=== PATIENT | male | born 1945 | race Caucasian/White ===

== ENCOUNTER 2017-04-13 23:22 | Inpatient (IN) | payer OTHER, MEDICARE ==
[2017-04-13] MEDS ORDERED: DILTIAZEM HCL INJ 25 MG/5 ML VIAL IV ONE (23:38)
[2017-04-13] MEDS ORDERED: DILTIAZEM HCL INJ 25 MG/5 ML VIAL ONE (23:41)
[2017-04-13 23:52] LABS: ALANINE AMINOTRANSFERASE 45 U/L (21-72); ALBUMIN 4.1 g/dL (3.5-5.0); ALCOHOL 12 mg/dL (NONE DETECTED); ALKALINE PHOSPHATASE 103 U/L (38-126); ASPARTATE AMINO TRANSFERASE 80 U/L (17-59); BILIRUBIN,DIRECT 0.4 mg/dL (0.0-0.4); BILIRUBIN,TOTAL 0.7 mg/dL (0.2-1.3); BLOOD UREA NITROGEN 11 mg/dL (7-20); CALCIUM 8.5 mg/dL (8.4-10.2); CARBON DIOXIDE 12 mmol/L (22-30); CHLORIDE 105 mmol/L (98-107); CREATININE RESULT 1.07 mg/dL (0.52-1.25); GLUCOSE 285 mg/dL (75-110); HEMATOCRIT 49.7 % (37.9-51.0); HEMOGLOBIN 15.6 g/dL (13.5-17.0); HGB HCT DIFFERENCE -2.9; MAGNESIUM 1.8 mg/dL (1.6-2.3); MEAN CORPUSCULAR HGB CONC 31.5 g/dL (32.0-36.0); MEAN CORPUSCULAR VOLUME 99 fl (80-97); RED BLOOD COUNT 5.04 10^6/uL (4.35-5.55); RED CELL DISTRIBUTION WIDTH 16.7 % (11.5-14.0); TOTAL PROTEIN 7.1 g/dL (6.3-8.2); WHITE BLOOD COUNT 14.5 10^3/uL (4.0-10.5)
[2017-04-14 00:01] LABS: SODIUM 146.4 mmol/L (137-145)
[2017-04-14 00:03] LABS: ANION GAP 29 (5-19); POTASSIUM 3.1 mmol/L (3.6-5.0)
--- NOTE | 2017-04-14 00:12 | RADIOLOGY REPORT (SQ) ---
EXAM DESCRIPTION: CT HEAD WITHOUT COMPLETED DATE/TIME: 04/13/2017 11:57 pm REASON FOR STUDY: seizure COMPARISON: None. TECHNIQUE: Axial images acquired through the brain without intravenous contrast. Images reviewed wi th bone, brain and subdural windows. Images stored on PACS. All CT scanners at this facility use dose modulation, iterative reconstruction, and/or weight based d osing when appropriate to reduce radiation dose to as low as reasonably achievable (ALARA). [facility]: Dose Right [facility]: CareDose [facility]: Dose Right [facility]: Teradose 4D [facility]: Smart [employer] RADIATION DOSE: Up-to-date CT equipment and radiation dose reduction techniques were employed. CTDIv ol: 64.6 mGy. DLP: 1163 mGy-cm. mGy. LIMITATIONS: None. FINDINGS: The VENTRICLES: Normal size and contour. CEREBRUM: No masses. No hemorrhage. No midline shift. Moderate left posterior parieto-occipital en cephalomalacia/infarct. Mild cerebral volume loss. CEREBELLUM: No masses. No hemorrhage. No alteration of density. No evidence for acute infarction. EXTRAAXIAL SPACES: No fluid collections. No masses. ORBITS AND GLOBE: No intra- or extraconal masses. Normal contour of globe without masses. CALVARIUM: No fracture. PARANASAL SINUSES: No fluid or mucosal thickening. SOFT TISSUES: No mass or hematoma. OTHER: No other significant finding. IMPRESSION: No acute findings.Moderate left posterior parieto-occipital encephalomalacia/infarct. TECHNICAL DOCUMENTATION: JOB ID: [id number] Quality ID # [id number]: Final reports with documentation of one or more dose reduction techniques (e.g., Au tomated exposure control, adjustment of the mA and/or kV according to patient size, use of iterative reconstruction technique) 2010 [employer]- All Rights Reserved
[2017-04-14 00:14] LABS: BASOPHILS % (MANUAL) 1 % (0-2); EOSINOPHILS % (MANUAL) 0 % (0-6); LYMPHOCYTES % (MANUAL) 41 % (13-45); TOTAL CELLS COUNTED 100
[2017-04-14 00:17] LABS: ANISOCYTOSIS 1+; OVALOCYTES SLIGHT; POIKILOCYTOSIS SLIGHT
--- NOTE | 2017-04-14 00:19 | RADIOLOGY REPORT (SQ) ---
EXAM DESCRIPTION: CHEST SINGLE VIEW COMPLETED DATE/TIME: 04/14/2017 12:03 am REASON FOR STUDY: dyspnea COMPARISON: None. EXAM PARAMETERS: NUMBER OF VIEWS: One view. TECHNIQUE: Single frontal radiographic view of the chest acquired. RADIATION DOSE: NA LIMITATIONS: None. FINDINGS: LUNGS AND PLEURA: Small left basilar atelectasis or scar. Moderate lung volumes. MEDIASTINUM AND HILAR STRUCTURES: No masses. Contour normal. HEART AND VASCULAR STRUCTURES: Heart normal in size. Normal vasculature. BONES: No acute findings. HARDWARE: None in the chest. OTHER: Moderate intra colonic gas of the upper abdomen. IMPRESSION: No acute cardiopulmonary findings. TECHNICAL DOCUMENTATION: JOB ID: [id number]
[2017-04-14 00:22] LABS: THYROID STIMULATING HORMONE 1.52 uIU/mL (0.47-4.68)
--- NOTE | 2017-04-14 00:24 | RADIOLOGY REPORT (SQ) ---
EXAM DESCRIPTION: CT CERVICAL SPINE WITHOUT COMPLETED DATE/TIME: 04/14/2017 12:03 am REASON FOR STUDY: fall with injury COMPARISON: None. TECHNIQUE: Axial images acquired through the cervical spine without intravenous contrast. Images re viewed with lung, soft tissue and bone windows. Reconstructed coronal and sagittal MPR images review ed. Images stored on PACS. All CT scanners at this facility use dose modulation, iterative reconstruction, and/or weight based d osing when appropriate to reduce radiation dose to as low as reasonably achievable (ALARA). [facility]: Dose Right [facility]: CareDose [facility]: Dose Right [facility]: Teradose 4D [facility]: Smart [employer] RADIATION DOSE: Up-to-date CT equipment and radiation dose reduction techniques were employed. CTDIv ol: 21.7 mGy. DLP: 448 mGy-cm. mGy. LIMITATIONS: None. FINDINGS: ALIGNMENT: Anatomic. MINERALIZATION: Normal. VERTEBRAL BODIES: No fractures or dislocation. DISCS: Moderate C6-C7 disc bulge. Mild C5-C6 disc bulge. Small T1-T2 disc bulge. Moderate spondylo sis between the C3 and C7 levels and mild -moderate disc bulges include mild -moderate bilateral bony foraminal stenoses at those levels. FACETS, LATERAL MASSES, POSTERIOR ELEMENTS: No fractures. No dislocation. No acute findings. HARDWARE: None in the spine. VISUALIZED RIBS: No fractures. LUNG APICES AND SOFT TISSUES: No significant or acute findings. OTHER: No other significant finding. IMPRESSION: NO ACUTE FINDINGS IN THE CERVICAL SPINE. TECHNICAL DOCUMENTATION: JOB ID: [id number] Quality ID # [id number]: Final reports with documentation of one or more dose reduction techniques (e.g., Au tomated exposure control, adjustment of the mA and/or kV according to patient size, use of iterative reconstruction technique) 2010 [employer]- All Rights Reserved
[2017-04-14] MEDS ORDERED: POTASSI CL 40 MEQ/D5-1/2NS 1L 1,000 ML IV ONE (00:46)
--- NOTE | 2017-04-14 01:10 | ER Document Report ---
ED General - General Chief Complaint: Probable Seizure Stated Complaint: UNRESPONSIVE Time Seen by Provider: 04/13/17 23:31 Mode of Arrival: Medic Information source: Patient, Relative, Emergency Med Personnel - [facility] Notes: Patient is a 71 y.o. male with hx of CVA with prior R sided mild weakness, but usually ambulates without assistance, prior hx epilepsy remotely, hx alcohol abuse, presents by EMS with report of observed seizure activity by family and later EMS at 2100, pt was given Versed 2 mg intranasal followed by 2 mg IV before the seizure activity subsided. The patient was then found to have a persistent tachycardia with a rate of 170 and blood pressure of 69 systolic and attempt was made for cardioversion by EMS which was unsuccessful. The patient arrived in atrial fibrillation, but the blood pressure had recovered at the time of evaluation on arrival with blood pressure 149/83 Heart rate of 165. Past Medical History - General Information source: Patient, Relative, Emergency Med Personnel - Social History Smoking Status: Current Some Day Smoker Frequency of alcohol use: Heavy Drug Abuse: Marijuana Lives with: Family Family History: Reviewed & Not Pertinent Review of Systems - Review of Systems Notes: REVIEW OF SYSTEMS: Obtained after the patient became more alert and coherent. CONSTITUTIONAL : Denies fever, chills, or sweats. Denies recent illness. EENT: Denies eye, ear, throat, or mouth pain or symptoms. Denies nasal or sinus congestion or discharge. Denies throat, tongue, or mouth swelling or difficulty swallowing. CARDIOVASCULAR: Denies chest pain. Denies palpitations or racing or irregular heart beat. Denies ankle edema. RESPIRATORY: Denies cough, cold, or chest congestion. Denies shortness of breath, difficulty breathing, or wheezing. GASTROINTESTINAL: Denies abdominal pain or distention. Denies nausea, vomiting , or diarrhea. Denies blood in vomitus, stools, or per rectum. Denies black, tarry stools. Denies constipation. GENITOURINARY: Denies difficulty urinating, painful urination, burning, frequency, blood in urine, or discharge. MUSCULOSKELETAL: Denies back or neck pain or stiffness. Denies joint pain or swelling. SKIN: Denies rash, lesions or sores. HEMATOLOGIC : Denies easy bruising or bleeding. LYMPHATIC: Denies swollen, enlarged glands. NEUROLOGICAL: Postictal confusion that has improved. Denies passing out or loss of consciousness. Denies dizziness or lightheadedness. Denies headache. Denies problems with gait or speech. Denies sensory loss, numbness, or tingling. Patient has right sided weakness which is worse from his previous stroke. PSYCHIATRIC: Denies anxiety or stress. Denies depression, suicidal ideation, or homicidal ideation. ALL OTHER SYSTEMS REVIEWED AND NEGATIVE. Dictation was performed using [employer] voice recognition software obtained after the patient became more alert Physical Exam - Vital signs Vitals: Pulse Ox 98 04/13/17 23:33 - Notes Notes: PHYSICAL EXAMINATION: GENERAL: Patient initially was seen somewhat distressed unconscious but responsive to painful stimuli HEAD: normocephalic. Patient has old contusion right upper forehead approximately 1 week old. No bony deformity or crepitance. EYES: Pupils 2 mm on the right 4 mm on the left with minimal reactivity, extraocular movements intact, sclera anicteric, conjunctiva are normal. patient later stated that his pupils are usually not the same size chronically. ENT: Nares patent, oropharynx clear without exudates. Moist mucous membranes. NECK: Normal range of motion On later exam , supple without lymphadenopathy LUNGS: Breath sounds clear to auscultation bilaterally and equal. No wheezes rales or rhonchi. HEART: tachycardic irregular rate 165. 1/6 systolic ejection murmur best auscultated over the apex. ABDOMEN: Soft, nontender, nondistended abdomen. No guarding, no rebound. No masses appreciated. Musculoskeletal: Normal range of motion, no pitting or edema. No cyanosis. NEUROLOGICAL: And disoriented and was slow to respond initial exam patient was somnolent . Patient initially was responsive to painful stimuli but only had movement on the left upper and lower extremity. Patient was flaccid on the right lower and upper extremity. Reflexes however were equal on both sides. PSYCH: Normal mood, normal affect. SKIN: Warm, Dry, normal turgor, no rashes or lesions noted. Course - Re-evaluation Re-evalutation: 04/14/17 02:30 Patient was noted initially to be in atrial fibrillation. Blood pressure was stable. Patient was given 10 mg of IV diltiazem, and he converted to normal sinus rhythm shortly thereafter. Blood pressure remained stable thereafter. The patient denied ever having any chest pain. CT scan of the head showed an old left sidedInfarct but no evidence for acute infarct or intracranial hemorrhage or fracture. Patient initially was altered, and I could not exclude a cervical spine fracture given that he was found on the floor. CT scan of the cervical spine showed no evidence for acute fracture or other injury. Patient on multiple repeat exam showed progressive improvement in his level of functioning and cognition and speech and right-sided weakness. Given this progressive improvement, the patient did not meet criteria for lytic therapy, and his right-sided weakness seem to more consistent with a Migel's paralysis. Discussion was undertaken with the patient's granddaughter that he was staying with locally, Lydia [phone], and with his daughter in [place], Annmarie . The daughter stated he was drinking approximately twice per week and then Rima, but the granddaughter stated he was drinking a half of a pint of vodka daily since he had moved back here. They related that the patient did have a previous history of epilepsy when he was younger, but had not had a seizure for many years. He was not on any antiepileptic medications. Current medications aspirin. [facility], but does not have a local doctor. From the patient's previous remote stroke, he previously had to go to rehab for difficulty ambulating, but now is able to ambulate without difficulty and only has some mild chronic residual weakness in the right upper extremity from his previous stroke. Marijuana was found in the patient's pocket, and the police came in to investigate further. Initial bicarb was low at 12 and potassium was low at 3.1, so patient was gently rehydrated with normal saline with 40 KCl at 2 50 cc an hour 4 hours. Low bicarb was thought secondary to the patient's seizure activity. Magnesium level was normal. Initial troponin was negative. Chest x-ray was negative for acute Congestive failure aspiration or pneumonia. Patient was given IV Keppra and IV thiamine. Urinalysis and urine drug screen is pending on the patient. Discussion was undertaken with the patient and family and they were in agreement with admission for further evaluation and management. Discussion was undertaken with Dr. Willingham, who agreed to admit the patient for further care and management. 04/14/17 02:36 Patient on repeat exam showed no obvious evidence for DTs or significant withdrawal, but there is concern that the seizure could represent some withdrawal and his alcohol level was somewhat low at 12. Currently there is no hallucinations or tremor noted on repeat exam. Patient still has a mild expressive aphasia and slight confabulation. 04/14/17 02:39 - Vital Signs Vital signs: Temp Pulse Resp BP Pulse Ox 98 04/13/17 23:33 - Laboratory Result Diagrams: 04/13/17 23:25 04/13/17 23:25 Laboratory results interpreted by me: 04/13/17 04/13/17 04/13/17 23:25 23:25 23:25 WBC 14.5 H MCV 99 H MCHC 31.5 L RDW 16.7 H Abs Lymphs (Manual) 7.1 H Sodium 146.4 H Potassium 3.1 L Carbon Dioxide 12 L Anion Gap 29 H Glucose 285 H AST 80 H Free T4 0.74 L - EKG Interpretation by Me Additional EKG results interpreted by me: 04/14/17 02:29 Initial EKG at 2334 as interpreted by me showed atrial fibrillation with rapid ventricular response rate of 176. There was secondary repolarization abnormalities noted. There is no gross evidence for STEMI. There was no old EKG available for comparison. There was no obvious evidence for acute WV or ischemia. Repeat EKG performed 00 40 after 10 mg of IV diltiazem showed normal sinus rhythm heart rate of 91. There is no gross evidence for acute WV or ischemia. There was resolution of the right related ST segment abnormalities noted from the previous EKG. There is resolution of the patient's previous atrial fibrillation. Critical Care Note - Critical Care Note Total time excluding time spent on procedures (mins): 62 Discharge - Discharge Clinical Impression: Seizure, Hyperglycemia, Migel's paralysis (postepileptic), Hypokalemia, Alcohol abuse, Marijuana abuse Atrial fibrillation Qualifiers: Atrial fibrillation type: paroxysmal Qualified Code(s): I48.0 - Paroxysmal atrial fibrillation Condition: Stable Disposition: ADMITTED INPATIENT Admitting Provider: Hospitalist Unit Admitted: [facility]
[2017-04-14] MEDS ORDERED: LEVETIRACETAM 1000 MG/NACL-ISO 100 ML IV ONE (01:42)
[2017-04-14] MEDS ORDERED: LORAZEPAM INJ 2 MG/1 ML VIAL IV ONE (02:49)
[2017-04-14 03:43] LABS: APPEARANCE,URINE CLEAR; BILIRUBIN,URINE NEGATIVE (NEGATIVE); GLUCOSE, URINE >=500 mg/dL (NEGATIVE); KETONES,URINE NEGATIVE (NEGATIVE); LEUKOCYTE ESTERASE,URINE NEGATIVE (NEGATIVE); NITRITE,URINE NEGATIVE (NEGATIVE); PROTEIN,URINE 30 mg/dL (NEGATIVE); URINE SPECIFIC GRAVITY 1.006; UROBILINOGEN,URINE NEGATIVE mg/dL (<2.0)
[2017-04-14 03:57] LABS: URINE METHADONE SCREEN NEGATIVE; URINE OPIATES LOW NEGATIVE; URINE PHENCYCLIDINE SCREEN NEGATIVE
[2017-04-14] MEDS ORDERED: LORAZEPAM 1 MG TABLET PO PRN (03:58)
[2017-04-14] MEDS ORDERED: DEXTROSE 50%-WATER 25 GM/50 ML DISP.SYRIN IV PRN ×2 (03:59)
[2017-04-14] MEDS ORDERED: GLUCAGON,HUMAN RECOMB 1 MG INJ IM PRN (03:59)
[2017-04-14] MEDS ORDERED: INSULIN LISPRO 100 UNIT/ML 3 ML VIAL SUBCUT PRN (03:59)
[2017-04-14] MEDS ORDERED: DEXTROSE 40% GEL 15 GM TUBE PO PRN ×2 (03:59)
[2017-04-14 04:08] LABS: URINE BARBITURATES SCREEN NEGATIVE
[2017-04-14] MEDS ORDERED: IPRATROPIUM/ALBUTEROL 0.5-2.5 MG/3 ML AMPUL NEB PRN (04:08)
[2017-04-14] MEDS ORDERED: PROMETHAZINE HCL 25 MG TABLET PO PRN (04:13)
[2017-04-14 04:14] LABS: ADD ON TESTING BLD IN LAB ACKNOWLEDGE
[2017-04-14] MEDS ORDERED: POTASSI CL 20 MEQ/50 ML RIDER 20 MEQ/50 ML RTUPB IV ONE (04:45)
--- NOTE | 2017-04-14 04:59 | PDOC H&P ---
History of Present Illness Admission Date/PCP: 04/14/17 04:07 [place] Patient complains of: seizure History of Present Illness: HAZEL SOFIA is a 71 year old male with history of a seizure in his childhood, never on antiepileptic, ongoing alcohol abuse, at least 1/2 pint of whiskey a day who was observed initially by family and later by EMS approximately 9 PM on the first to have tonic-clonic seizure activity. Versed 2 mg intranasal followed by 2 mg IV was given by EMS, with eventual resolution of seizure activity. Patient was then noted to be persistently tachycardic, rate of 170 with blood pressure 69 systolic. Cardioversion 1 by EMS was unsuccessful. Was noted to be in atrial fibrillation with rapid ventricular response upon emergency room arrival, with blood pressure 149/83, and heart rate 165. Rate has been well controlled with a single 10 mg IV bolus of Cardizem. As best can be determined, no history of atrial fibrillation or atrial flutter. Patient has been discussed with emergency room physician who evaluated the patient. Patient is globally disoriented and answers basic questions with non sequitur responses and word salad and is able to provide no history whatsoever in terms of acute or chronic events, review of systems, personal habits, family history, etc. No friends or family are present. No inpatient records available for review. Extensive documentation by emergency room physician concerning his multiple examinations of patient along with telephone discussion with daughter in [place] and granddaughter, who was earlier at the bedside. Notes are reviewed. History of prior stroke, with residual right hemiparesis, which, according to the emergency room physician, was rather pronounced upon his initial evaluation , but has gradually steadily improved since arrival in the emergency room. Anisocoria noted by emergency room physician and confirmed on my exam. Patient told emergency room physician pupils have been of different size for some time now. Laboratory results are listed in [employer] and are reviewed. X-ray summary results are listed below, with full report(s) reviewed. . EKG reviewed. Social history/personal habits: Recently moved to the area from out of state to be with his granddaughter. Alcohol use as noted above. Uncertain tobacco usage. Of note, vial containing marijuana found on patient, with [place] [employer] notified and having seen and evaluated the patient themselves. No known drug allergies. Home medications 1 baby aspirin a day. REVIEW OF SYSTEMS: See history and present illness. No further information available this point in time. PHYSICAL EXAMINATION: 5 feet 9 inches tall. 80.1 kg. BMI 26.1 kg/m. Manual blood pressure 130/90 bilaterally. Pulse 93 and regular. 99% saturation on 2 L oxygen per nasal cannula. Respirations are 21 and unlabored. Temperature not recorded on chart ; skin feels normothermic. Well-nourished well-developed male appearing a bit younger than his stated age. He is awake and reasonably alert, but appears somewhat fatigued. See history and present illness. Somewhat anxious, but no lauri agitation. Skin is warm and dry. No grossly obvious evidence of rash in areas of skin examined. No subcutaneous nodules palpated. ENT: Hearing grossly normal to normal conversation. Tongue midline on protrusion pink and slightly tacky. No avila sign. Eyes: No scleral icterus. Right pupil 3 mm; left pupil 5 mm; both reactive to light. Cayce conjunctivae. No raccoon eyes. Neck is supple and nontender to gentle active range of motion and palpation. Midline trachea. No palpable thyroid nodule mass enlargement or tenderness. Lymphatic: No palpable cervical or clavicular nodes. Neck and lymphatic exams limited by patient body habitus. Psychiatric: Cannot be adequately evaluated. See history and present illness. Lungs: Auscultation reveals clear and equal breath sounds bilaterally. No use of accessory respiratory muscles. Cardiovascular: Heart regular rate and rhythm, without gallop murmur or rub. No carotid or abdominal aortic bruits. No ankle or pedal edema. Faintly palpable dorsalis pedis pulses. Abdomen:soft slightly distended nontender with positive bowel sounds. Unable to adequately evaluate abdomen for masses or organomegaly due to distention. Extremities: Hands and feet are warm and dry. No upper or lower extremity tenderness to compression. No grossly obvious visual evidence of upper or lower extremity swelling. Gentle manipulation of upper and lower extremities fails to reveal any obvious evidence of injury or instability to involved major joints. Neurologic: Cranial Nerves II through XII are grossly intact. Light touch cannot be adequately evaluated due to his mental status.. Motor function of major muscle groups upper and lower extremities 5 over 5 and symmetric, with exception of right upper extremity major muscle strength 4/5. Patellar reflexes absent. Absent Babinski. No nystagmus. No rigidity. Prefers holding his right upper extremity with elbow flexed, but is able to extend almost completely straight. Past Medical History Past Medical History: Patient cannot provide any information. Past Surgical History Past Surgical History: Patient cannot provide any information. Social History Information Source: Emergency Med Personnel, [facility] Records Lives with: Family Smoking Status: Current Some Day Smoker Frequency of Alcohol Use: Heavy Hx Recreational Drug Use: Yes - Uncertain Drugs: None - Uncertain if illicit drug usage - Advance Directive Resuscitation Status: Full Code Surrogate healthcare decision maker:: Uncertain; patient cannot provide any information related to same Family History Family History: Reviewed & Not Pertinent Parental Family History Reviewed: No - Patient cannot provide any information. Children Family History Reviewed: No - Patient cannot provide any information. Sibling(s) Family History Reviewed.: No - Patient cannot provide any information. Medication/Allergy Home Medications: RX: Aspirin [Aspirin 81 mg Chewable Tablet] 81 mg PO DAILY 04/14/17 RX: Folic Acid [Folvite 1 mg Tablet] 1 mg PO DAILY tablet 04/18/17 RX: Levetiracetam [Keppra 500 mg Tablet] 500 mg PO Q12 #60 tablet 04/18/17 RX: Levothyroxine Sodium [Synthroid 0.05 mg Tablet] 0.05 mg PO QAM #30 tablet RX: Multivitamin [Tab-A-Oziel (Multiple Vitamin) Tablet] 1 tab PO DAILY tablet 04/18/17 RX: Potassium Chloride [Klor-Con 10 Meq Tablet.sa] 10 meq PO Q12 #60 tablet.sa 04/18/17 RX: Thiamine HCl [Thiamine 100 mg Tablet] 100 mg PO DAILY tablet 04/18/17 Allergies/Adverse Reactions: No Known Allergies Allergy (Unverified 04/14/17 04:25) Physical Exam Vital Signs: Temp Pulse Resp BP Pulse Ox 98 04/13/17 23:33 Results Impressions: Head CT 04/13/17 23:33 IMPRESSION: No acute findings.Moderate left posterior parieto-occipital encephalomalacia/infarct. Chest X-Ray 04/13/17 23:34 IMPRESSION: No acute cardiopulmonary findings. Cervical Spine CT 04/13/17 23:38 IMPRESSION: NO ACUTE FINDINGS IN THE CERVICAL SPINE. Assessment & Plan - Diagnosis (3) Acute encephalopathy Is this a current diagnosis for this admission?: YesPlan: Probably multifactorial, including polysubstance abuse, along with possibly an element of alcohol withdrawal. Keppra started. Seizure precautions. (4) Alcohol intoxication Qualifiers: Complication of substance-induced condition: with unspecified complication Qualified Code(s): F10.929 - Alcohol use, unspecified with intoxication , unspecified Is this a current diagnosis for this admission?: YesPlan: Alcohol withdrawal precautions, including daily thiamine, multivitamins, and folic acid. As needed Ativan. (5) Atrial fibrillation status post cardioversion Is this a current diagnosis for this admission?: Yes (6) Hyperglycemia Is this a current diagnosis for this admission?: YesPlan: Hemoglobin A1c pending. (7) Hypokalemia Is this a current diagnosis for this admission?: YesPlan: Potassium replacement with follow-up chemistry. (8) Marijuana abuse Is this a current diagnosis for this admission?: Yes (9) New onset atrial fibrillation Is this a current diagnosis for this admission?: YesPlan: D-dimer. Echocardiogram. Cardiology consult. Serial troponin. I have strongly encouraged patient not to get out of bed, to avoid a fall with injury. Knee high SCDs for DVT prophylaxis, along with subcutaneous Lovenox. Time spent in evaluation and management of patient: 70 critical-care minutes. (10) Seizure Is this a current diagnosis for this admission?: YesPlan: Likely combination of polysubstance abuse, along with possibly an element of alcohol withdrawal. Seizure precautions. Keppra started. (11) Migel's paralysis (postepileptic) Is this a current diagnosis for this admission?: Yes (12) Alcohol abuse Is this a current diagnosis for this admission?: Yes - Inpatient Certification Based on my medical assessment, after consideration of the patient's comorbidities, presenting symptoms, or acuity I expect that the services needed warrant INPATIENT care.: Yes I certify that my determination is in accordance with my understanding of Medicare's requirements for reasonable and necessary INPATIENT services [42 CFR 412.3e].: Yes Medical Necessity: Need Close Monitoring Due to Risk of Patient Decompensation, Need For IV Fluids, Need For Continuous Telemetry Monitoring, Need for Neurological Checks, Risk of Complication if Not Cared For in Hospital Post Hospital Care: D/C or Transfer Summary
[2017-04-14 06:46] LABS: ABSOLUTE LYMPHOCYTES (AUTO) 0.3 10^3/uL (0.5-4.7); ABSOLUTE MONOCYTES (AUTO) 0.3 10^3/uL (0.1-1.4); ABSOLUTE NEUT (AUTO) 5.4 10^3/uL (1.7-8.2); BASOPHILS % (AUTO) 0.1 % (0-2); HEMATOCRIT 32.9 % (37.9-51.0); HGB HCT DIFFERENCE -0.8; LYMPHOCYTES % (AUTO) 5.5 % (13-45); MEAN CORPUSCULAR HEMOGLOBIN 31.4 pg (27.0-33.4); MEAN CORPUSCULAR HGB CONC 32.5 g/dL (32.0-36.0); MEAN CORPUSCULAR VOLUME 97 fl (80-97); MONOCYTES % (AUTO) 5.2 % (3-13); RED BLOOD COUNT 3.41 10^6/uL (4.35-5.55); SEGMENTED NEUTROPHILS % (AUTO) 89.2 % (42-78)
[2017-04-14 06:50] LABS: HEMOGLOBIN 10.7 g/dL (13.5-17.0)
[2017-04-14] MEDS: 1/2 NORMAL SALINE 1,000 ML IV PRN ×2 (07:04→17:51)
[2017-04-14 07:41] LABS: ANION GAP 12 (5-19); BLOOD UREA NITROGEN 12 mg/dL (7-20); CALCIUM 8.3 mg/dL (8.4-10.2); CHLORIDE 105 mmol/L (98-107); CREATININE RESULT 0.99 mg/dL (0.52-1.25); GLUCOSE 107 mg/dL (75-110); POTASSIUM 3.5 mmol/L (3.6-5.0); SODIUM 144.3 mmol/L (137-145)
[2017-04-14 07:55] LABS: CARBON DIOXIDE 27 mmol/L (22-30)
[2017-04-14] MEDS ORDERED: THIAMINE HCL 100 MG, FOLIC ACID 1 MG in NORMAL SALINE 50 ML IV SCH (10:00)
[2017-04-14] MEDS ORDERED: LEVOTHYROXINE SODIUM 0.05 MG TABLET PO ONE (11:00)
[2017-04-14] MEDS: MULTIVITAMIN TABLET PO SCH (11:10)
[2017-04-14] MEDS: DOCUSATE SODIUM 100 MG CAPSULE PO SCH ×2 (11:11→17:52)
[2017-04-14] MEDS: FOLIC ACID 1 MG TABLET PO SCH (11:11)
[2017-04-14] MEDS: LEVETIRACETAM 500 MG TABLET PO SCH ×2 (11:11→22:27)
[2017-04-14] MEDS: THIAMINE HCL 100 MG TABLET PO SCH (11:11)
[2017-04-14] MEDS: ENOXAPARIN SODIUM INJ 40 MG/0.4 ML DISP.SYRIN SUBCUT SCH (11:11)
[2017-04-14] MEDS: POTASSI CL 20 MEQ/50 ML RIDER 50 ML IV SCH ×2 (11:25→12:53)
--- NOTE | 2017-04-14 11:26 | EKG REPORT ---
SEVERITY:- ABNORMAL ECG - ATRIAL FIBRILLATION WITH RAPID V-RATE BORDERLINE LEFT AXIS DEVIATION REPOLARIZATION ABNORMALITY, PROB RATE RELATED : Confirmed by: Demetri Ayon 14-Apr-2017 11:26:24
--- NOTE | 2017-04-14 11:26 | EKG REPORT ---
SEVERITY:- ABNORMAL ECG - SINUS RHYTHM BORDERLINE LEFT AXIS DEVIATION ABNRM R PROG, CONSIDER ASMI OR LEAD PLACEMENT BORDERLINE PROLONGED QT INTERVAL : Confirmed by: Demetri Ayon 14-Apr-2017 11:25:52
--- NOTE | 2017-04-14 11:26 | EKG REPORT ---
SEVERITY:- OTHERWISE NORMAL ECG - SINUS RHYTHM BORDERLINE LEFT AXIS DEVIATION : Confirmed by: Demetri Ayon 14-Apr-2017 11:26:07
[2017-04-15] MEDS: 1/2 NORMAL SALINE 1,000 ML IV PRN ×2 (06:52→21:15)
[2017-04-15 07:25] LABS: WHITE BLOOD COUNT 6.3 10^3/uL (4.0-10.5)
[2017-04-15 07:27] LABS: HEMATOCRIT 40.7 % (37.9-51.0); HGB HCT DIFFERENCE 0.1; MEAN CORPUSCULAR HEMOGLOBIN 31.6 pg (27.0-33.4); MEAN CORPUSCULAR HGB CONC 33.5 g/dL (32.0-36.0); MEAN CORPUSCULAR VOLUME 94 fl (80-97); RED BLOOD COUNT 4.31 10^6/uL (4.35-5.55); RED CELL DISTRIBUTION WIDTH 15.7 % (11.5-14.0)
[2017-04-15 07:40] LABS: ANION GAP 8 (5-19); BLOOD UREA NITROGEN 12 mg/dL (7-20); CALCIUM 8.1 mg/dL (8.4-10.2); CARBON DIOXIDE 26 mmol/L (22-30); CHLORIDE 103 mmol/L (98-107); GLUCOSE 95 mg/dL (75-110); HEMOGLOBIN 13.6 g/dL (13.5-17.0); POTASSIUM 3.1 mmol/L (3.6-5.0)
--- NOTE | 2017-04-15 08:56 | PDOC PROGRESS REPORT ---
Subjective Progress Note for:: 04/15/17 Subjective:: No reported atrial fibrillation. Patient back to sinus rhythm. Reportedly had DC cardioversion. No reported agitation. No seizure reported. Patient without tremors. No reported pain or discomfort, no respiratory distress, no temperature spikes. Physical Exam Vital Signs: Temp Pulse Resp BP Pulse Ox 98.8 F 76 16 144/80 H 97 04/15/17 08:02 04/15/17 08:02 04/15/17 08:02 04/15/17 08:02 04/15/17 08:02 Intake & Output 04/14/17 04/15/17 04/16/17 06:59 06:59 06:59 Intake Total 2615 Output Total 1950 Balance 665 Weight 73.5 kg General appearance: PRESENT: no acute distress, cooperative Head exam: PRESENT: normocephalic Eye exam: PRESENT: EOMI Mouth exam: PRESENT: moist, neck supple Neck exam: ABSENT: JVD Respiratory exam: PRESENT: clear to auscultation robbin. ABSENT: rhonchi, wheezes Cardiovascular exam: PRESENT: RRR - Sinus on campus monitor. ABSENT: gallop GI/Abdominal exam: PRESENT: hypoactive bowel sounds, soft. ABSENT: distended, tenderness Extremities exam: ABSENT: pedal edema Neurological exam: PRESENT: alert, awake, oriented to person, oriented to place , oriented to time Skin exam: PRESENT: dry, warm. ABSENT: cyanosis Results Laboratory Results: 04/15/17 06:27 04/15/17 06:27 04/15/17 04/15/17 06:27 06:27 WBC 6.3 RBC 4.31 L Hgb 13.6 D Hct 40.7 MCV 94 MCH 31.6 MCHC 33.5 RDW 15.7 H Plt Count 93 L Sodium 137.0 Potassium 3.1 L Chloride 103 Carbon Dioxide 26 Anion Gap 8 BUN 12 Creatinine 1.10 Est GFR ( Amer) > 60 Est GFR (Non-Af Amer) > 60 Glucose 95 Calcium 8.1 L 04/14/17 04/14/17 04/14/17 04:40 06:08 10:30 Troponin I Cancelled 0.017 0.035 Impressions: Head CT 04/13/17 23:33 IMPRESSION: No acute findings.Moderate left posterior parieto-occipital encephalomalacia/infarct. Chest X-Ray 04/13/17 23:34 IMPRESSION: No acute cardiopulmonary findings. Cervical Spine CT 04/13/17 23:38 IMPRESSION: NO ACUTE FINDINGS IN THE CERVICAL SPINE. Assessment & Plan - Diagnosis (1) Atrial fibrillation Qualifiers: Atrial fibrillation type: paroxysmal Qualified Code(s): I48.0 - Paroxysmal atrial fibrillation Is this a current diagnosis for this admission?: Yes (2) Seizure Is this a current diagnosis for this admission?: Yes (3) Hypokalemia Is this a current diagnosis for this admission?: Yes (4) Hypothyroidism (acquired) Is this a current diagnosis for this admission?: Yes (5) Cocaine abuse Is this a current diagnosis for this admission?: Yes (6) Marijuana abuse Is this a current diagnosis for this admission?: Yes (7) Alcohol abuse Is this a current diagnosis for this admission?: Yes (8) Thrombocytopenia Is this a current diagnosis for this admission?: Yes (9) History of stroke Is this a current diagnosis for this admission?: Yes - Time Time Spent with patient: 25-34 minutes - Plan Summary Plan Summary: We are going to replace potassium. Continue gentle IV hydration. Check magnesium level. Recheck electrolytes in the morning. Continue Keppra. No noted seizure episode. No signs of withdrawal at this time. We will discontinue Ativan. Continue supplements. Begin Synthroid. Episode of atrial fibrillation could have been related to substance abuse. Increase activity. Possible discharge in the morning.
[2017-04-15] MEDS: LEVOTHYROXINE SODIUM 0.05 MG TABLET PO SCH (09:05)
[2017-04-15] MEDS: FOLIC ACID 1 MG TABLET PO SCH (09:06)
[2017-04-15] MEDS: ENOXAPARIN SODIUM INJ 40 MG/0.4 ML DISP.SYRIN SUBCUT SCH (09:06)
[2017-04-15] MEDS: LEVETIRACETAM 500 MG TABLET PO SCH ×2 (09:06→21:14)
[2017-04-15] MEDS: THIAMINE HCL 100 MG TABLET PO SCH (09:06)
[2017-04-15] MEDS: MULTIVITAMIN TABLET PO SCH (09:06)
[2017-04-15] MEDS: POTASSIUM CHLORIDE 10 MEQ TABLET.SA PO SCH ×2 (09:06→15:09)
[2017-04-15] MEDS: DOCUSATE SODIUM 100 MG CAPSULE PO SCH ×2 (09:06→19:45)
--- NOTE | 2017-04-15 19:22 | XCELERA REPORT ---
[address] [address] Transthoracic Echocardiogram Report Name: HAZEL SOFIA Age: 71 yrs Gender: Male : 1945 Patient Status: Inpatient Patient Location: [id number]\S\321\[id number]\A Study Date: 04/15/2017 09:50 AM Height: 69 in Weight: 158 lb BSA: 1.9 m2 Procedure: A two-dimensional transthoracic echocardiogram with color flow and Doppler was performed. The study was technically difficult with many images being suboptimal in quality. Reason For Study: ATRIAL FIBRILLATION History: ATRIAL FIBRILLATION. Ordering Physician: RAMON SILVA Performed By: Vinicius De Jesus Interpretation Summary The left ventricle is normal in size. There is normal left ventricular wall thickness. LV EF is 45% to 50% Left ventricular systolic function is mildly reduced. Doppler measurements suggest impaired left ventricular relaxation, which is associated with grade I/IV or mild diastolic dysfunction In a setting of mild global hypokinesis there is increased hypokinesis of the apical anterior wall. The right ventricle is grossly normal size. The left atrial size is normal. The interatrial septum is intact with no evidence for an atrial septal defect. There is no evidence of mitral valve prolapse. There is no mitral valve stenosis. There is a mild amount of mitral regurgitation There is no aortic valve stenosis There is no LVOT obstruction. No aortic regurgitation is present. There is no tricuspid stenosis. There is a trace amount of tricuspid regurgitation Right ventricular systolic pressure is normal. RVSP is 16 mm of Hg , with RA mean of 5. There is no pericardial effusion. MMode/2D Measurements \T\ Calculations RVDd: 2.1 cm LVIDd: 4.7 cm FS: 14.3 % Ao root diam: 3.9 cm IVSd: 1.1 cm LVIDs: 4.0 cm EDV(Teich): 101.4 ml LVPWd: 1.1 cm ESV(Teich): 70.6 ml Ao root area: 12.1 cm2 EF(Teich): 30.4 % Doppler Measurements \T\ Calculations MV E max akash: MV dec slope: Ao V2 max: LV V1 max P.7 cm/sec 107.4 cm/sec 3.3 mmHg MV A max akash: 181.3 cm/sec2 Ao max PG: LV V1 max: 72.9 cm/sec MV dec time: 4.6 mmHg 91.3 cm/sec MV E/A: 0.50 0.20 sec PA V2 max: TR max akash: RAP systole: 82.6 cm/sec 120.2 cm/sec 5.0 mmHg PA max PG: TR max P.8 mmHg 2.7 mmHg RVSP(TR): 10.8 mmHg Left Ventricle The left ventricle is normal in size. There is normal left ventricular wall thickness. LV EF is 45% to 50%. Left ventricular systolic function is mildly reduced. Doppler measurements suggest impaired left ventricular relaxation, which is associated with grade I/IV or mild diastolic dysfunction. In a setting of mild global hypokinesis there is increased hypokinesis of the apical anterior wall. There is no thrombus. There is no ventricular septal defect visualized. Right Ventricle The right ventricle is grossly normal size. Atria The right atrium is normal. The left atrial size is normal. The interatrial septum is intact with no evidence for an atrial septal defect. Mitral Valve There is no evidence of mitral valve prolapse. There is no vegetation seen on the mitral valve. There is no mitral valve stenosis. There is a mild amount of mitral regurgitation. Aortic Valve There is no aortic valvular vegetation. There is no aortic valve stenosis. There is no LVOT obstruction. No aortic regurgitation is present. Tricuspid Valve There is no tricuspid stenosis. There is a trace amount of tricuspid regurgitation. Right ventricular systolic pressure is normal. RVSP is 16 mm of Hg , with RA mean of 5. Pulmonic Valve There is no pulmonic valvular stenosis. There is no pulmonic valvular regurgitation. Great Vessels The aortic root is mildly dilated. Effusions There is no pericardial effusion. : RAMON SILVA > Janet Fitzpatrick
[2017-04-16 05:30] LABS: ANION GAP 10 (5-19); BLOOD UREA NITROGEN 15 mg/dL (7-20); CALCIUM 8.4 mg/dL (8.4-10.2); CARBON DIOXIDE 25 mmol/L (22-30); CHLORIDE 102 mmol/L (98-107); CREATININE RESULT 1.05 mg/dL (0.52-1.25); GLUCOSE 92 mg/dL (75-110); POTASSIUM 3.5 mmol/L (3.6-5.0)
[2017-04-16] MEDS: 1/2 NORMAL SALINE 1,000 ML IV PRN ×2 (08:00→20:28)
[2017-04-16] MEDS: LEVOTHYROXINE SODIUM 0.05 MG TABLET PO SCH (08:00)
[2017-04-16] MEDS: ENOXAPARIN SODIUM INJ 40 MG/0.4 ML DISP.SYRIN SUBCUT SCH (09:16)
[2017-04-16] MEDS: DOCUSATE SODIUM 100 MG CAPSULE PO SCH ×2 (09:19→18:10)
[2017-04-16] MEDS: LEVETIRACETAM 500 MG TABLET PO SCH ×2 (09:19→21:20)
[2017-04-16] MEDS: MULTIVITAMIN TABLET PO SCH (09:19)
[2017-04-16] MEDS: FOLIC ACID 1 MG TABLET PO SCH (09:19)
[2017-04-16] MEDS: THIAMINE HCL 100 MG TABLET PO SCH (09:19)
[2017-04-16] MEDS: POTASSIUM CHLORIDE 10 MEQ TABLET.SA PO SCH ×2 (09:19→21:20)
--- NOTE | 2017-04-16 14:50 | PDOC PROGRESS REPORT ---
Physical Exam Vital Signs: Temp Pulse Resp BP Pulse Ox 99.1 F 73 16 151/89 H 95 04/16/17 11:35 04/16/17 14:00 04/16/17 11:35 04/16/17 11:35 04/16/17 11:35 Intake & Output 04/15/17 04/16/17 04/17/17 06:59 06:59 06:59 Intake Total 2615 2125 222 Output Total 1950 1475 1675 Balance 665 650 -1453 Weight 73.5 kg 73.2 kg Results Laboratory Results: 04/15/17 06:27 04/16/17 04:34 04/16/17 04:34 Sodium 137.0 Potassium 3.5 L Chloride 102 Carbon Dioxide 25 Anion Gap 10 BUN 15 Creatinine 1.05 Est GFR ( Amer) > 60 Est GFR (Non-Af Amer) > 60 Glucose 92 Calcium 8.4 04/14/17 04/14/17 04/14/17 04:40 06:08 10:30 Troponin I Cancelled 0.017 0.035 Impressions: Head CT 04/13/17 23:33 IMPRESSION: No acute findings.Moderate left posterior parieto-occipital encephalomalacia/infarct. Chest X-Ray 04/13/17 23:34 IMPRESSION: No acute cardiopulmonary findings. Cervical Spine CT 04/13/17 23:38 IMPRESSION: NO ACUTE FINDINGS IN THE CERVICAL SPINE. Assessment & Plan - Diagnosis (1) Acute encephalopathy Is this a current diagnosis for this admission?: YesPlan: Likely secondary to substance abuse. It is improving (2) Atrial fibrillation Qualifiers: Atrial fibrillation type: paroxysmal Qualified Code(s): I48.0 - Paroxysmal atrial fibrillation Is this a current diagnosis for this admission?: YesPlan: Is rate controlled currently (3) Cocaine abuse Is this a current diagnosis for this admission?: Yes (4) Hypokalemia Is this a current diagnosis for this admission?: YesPlan: We will replace and continue to follow. (5) Hypothyroidism (acquired) Is this a current diagnosis for this admission?: YesPlan: Continue with Synthroid (6) Marijuana abuse Is this a current diagnosis for this admission?: Yes (7) Seizure Is this a current diagnosis for this admission?: YesPlan: No further seizure activity - Time Time Spent with patient: 25-34 minutes - Inpatient Certification Medical Necessity: Need Close Monitoring Due to Risk of Patient Decompensation - Plan Summary Plan Summary: If his mental status continues to improve we can hopefully discharge home tomorrow.
[2017-04-16] MEDS: ACETAMINOPHEN 325 MG TABLET PO PRN (21:19)
[2017-04-17] MEDS ORDERED: OXYCODONE HCL IR 5 MG TABLET PO ONE (03:00)
[2017-04-17 05:19] LABS: ABSOLUTE MONOCYTES (AUTO) 0.5 10^3/uL (0.1-1.4); ABSOLUTE NEUT (AUTO) 3.3 10^3/uL (1.7-8.2); BASOPHILS % (AUTO) 0.5 % (0-2); EOSINOPHILS % (AUTO) 0.5 % (0-6); HEMATOCRIT 43.8 % (37.9-51.0); HGB HCT DIFFERENCE 1.2; MEAN CORPUSCULAR HEMOGLOBIN 31.9 pg (27.0-33.4); MEAN CORPUSCULAR HGB CONC 34.2 g/dL (32.0-36.0); MEAN CORPUSCULAR VOLUME 93 fl (80-97); MONOCYTES % (AUTO) 8.4 % (3-13); RED CELL DISTRIBUTION WIDTH 15.9 % (11.5-14.0); SEGMENTED NEUTROPHILS % (AUTO) 56.6 % (42-78); WHITE BLOOD COUNT 5.7 10^3/uL (4.0-10.5)
[2017-04-17 05:45] LABS: ANION GAP 8 (5-19); BLOOD UREA NITROGEN 17 mg/dL (7-20); CALCIUM 8.7 mg/dL (8.4-10.2); CARBON DIOXIDE 27 mmol/L (22-30); CHLORIDE 101 mmol/L (98-107); CREATININE RESULT 1.04 mg/dL (0.52-1.25); GLUCOSE 101 mg/dL (75-110); POTASSIUM 3.6 mmol/L (3.6-5.0); SODIUM 136.2 mmol/L (137-145)
[2017-04-17] MEDS: LEVETIRACETAM 500 MG TABLET PO SCH ×2 (09:33→21:58)
[2017-04-17] MEDS: MULTIVITAMIN TABLET PO SCH (09:33)
[2017-04-17] MEDS: POTASSIUM CHLORIDE 10 MEQ TABLET.SA PO SCH ×2 (09:33→21:58)
[2017-04-17] MEDS: THIAMINE HCL 100 MG TABLET PO SCH (09:33)
[2017-04-17] MEDS: 1/2 NORMAL SALINE 1,000 ML IV PRN ×2 (09:33→22:02)
[2017-04-17] MEDS: LEVOTHYROXINE SODIUM 0.05 MG TABLET PO SCH (09:33)
[2017-04-17] MEDS: FOLIC ACID 1 MG TABLET PO SCH (09:33)
[2017-04-17] MEDS: ENOXAPARIN SODIUM INJ 40 MG/0.4 ML DISP.SYRIN SUBCUT SCH (09:34)
[2017-04-17] MEDS: DOCUSATE SODIUM 100 MG CAPSULE PO SCH ×2 (09:34→16:19)
--- NOTE | 2017-04-17 14:10 | PDOC PROGRESS REPORT ---
Subjective Progress Note for:: 04/17/17 Subjective:: Patient is somewhat confused this morning Physical Exam Vital Signs: Temp Pulse Resp BP Pulse Ox 98.4 F 65 16 148/94 H 97 04/17/17 11:26 04/17/17 11:26 04/17/17 11:26 04/17/17 11:26 04/17/17 11:26 Intake & Output 04/16/17 04/17/17 04/18/17 06:59 06:59 06:59 Intake Total 2125 3186 400 Output Total 1475 3600 700 Balance 650 -414 -300 Weight 73.2 kg 73.2 kg General appearance: PRESENT: no acute distress Eye exam: PRESENT: conjunctiva pink. ABSENT: scleral icterus Mouth exam: PRESENT: moist, tongue midline Neck exam: ABSENT: JVD Respiratory exam: PRESENT: clear to auscultation robbin. ABSENT: rales, rhonchi, wheezes Cardiovascular exam: PRESENT: RRR. ABSENT: diastolic murmur, rubs, systolic murmur GI/Abdominal exam: PRESENT: normal bowel sounds, soft. ABSENT: distended, guarding, mass, organolmegaly, rebound, tenderness Extremities exam: ABSENT: calf tenderness, clubbing, pedal edema Neurological exam: PRESENT: alert, awake, oriented to person, oriented to place , oriented to time, CN II-XII grossly intact. ABSENT: oriented to situation, motor sensory deficit Psychiatric exam: PRESENT: flat affect Skin exam: PRESENT: dry, intact, warm. ABSENT: cyanosis, rash Results Laboratory Results: 04/17/17 04:38 04/17/17 04:38 04/17/17 04/17/17 04:38 04:38 WBC 5.7 RBC 4.70 Hgb 15.0 Hct 43.8 MCV 93 MCH 31.9 MCHC 34.2 RDW 15.9 H Plt Count 104 L Seg Neutrophils % 56.6 Lymphocytes % 34.0 Monocytes % 8.4 Eosinophils % 0.5 Basophils % 0.5 Absolute Neutrophils 3.3 Absolute Lymphocytes 2.0 Absolute Monocytes 0.5 Absolute Eosinophils 0.0 Absolute Basophils 0.0 Sodium 136.2 L Potassium 3.6 Chloride 101 Carbon Dioxide 27 Anion Gap 8 BUN 17 Creatinine 1.04 Est GFR ( Amer) > 60 Est GFR (Non-Af Amer) > 60 Glucose 101 Calcium 8.7 04/14/17 04/14/17 04/14/17 04:40 06:08 10:30 Troponin I Cancelled 0.017 0.035 Impressions: Head CT 04/13/17 23:33 IMPRESSION: No acute findings.Moderate left posterior parieto-occipital encephalomalacia/infarct. Chest X-Ray 04/13/17 23:34 IMPRESSION: No acute cardiopulmonary findings. Cervical Spine CT 04/13/17 23:38 IMPRESSION: NO ACUTE FINDINGS IN THE CERVICAL SPINE. Assessment & Plan - Diagnosis (1) Acute encephalopathy Is this a current diagnosis for this admission?: YesPlan: Likely secondary to substance abuse. Still confused (2) Atrial fibrillation Qualifiers: Atrial fibrillation type: paroxysmal Qualified Code(s): I48.0 - Paroxysmal atrial fibrillation Is this a current diagnosis for this admission?: YesPlan: Is rate controlled currently (3) Cocaine abuse Is this a current diagnosis for this admission?: Yes (4) Hypokalemia Is this a current diagnosis for this admission?: YesPlan: Resolved (5) Hypothyroidism (acquired) Is this a current diagnosis for this admission?: YesPlan: Continue with Synthroid (6) Marijuana abuse Is this a current diagnosis for this admission?: Yes (7) Seizure Is this a current diagnosis for this admission?: YesPlan: No further seizure activity - Time Time Spent with patient: 15-24 minutes - Inpatient Certification Medical Necessity: Need Close Monitoring Due to Risk of Patient Decompensation
[2017-04-17] MEDS: ACETAMINOPHEN 325 MG TABLET PO PRN (20:04)
[2017-04-18 04:54] LABS: ABSOLUTE EOSINOPHILS # (AUTO) 0.1 10^3/uL (0.0-0.6); ABSOLUTE LYMPHOCYTES (AUTO) 2.1 10^3/uL (0.5-4.7); ABSOLUTE MONOCYTES (AUTO) 0.6 10^3/uL (0.1-1.4); ABSOLUTE NEUT (AUTO) 3.3 10^3/uL (1.7-8.2); BASOPHILS % (AUTO) 0.5 % (0-2); EOSINOPHILS % (AUTO) 1.7 % (0-6); HEMATOCRIT 42.9 % (37.9-51.0); HEMOGLOBIN 14.4 g/dL (13.5-17.0); HGB HCT DIFFERENCE 0.3; LYMPHOCYTES % (AUTO) 33.8 % (13-45); MEAN CORPUSCULAR HEMOGLOBIN 31.9 pg (27.0-33.4); MEAN CORPUSCULAR HGB CONC 33.6 g/dL (32.0-36.0); MEAN CORPUSCULAR VOLUME 95 fl (80-97); MONOCYTES % (AUTO) 9.7 % (3-13); RED BLOOD COUNT 4.52 10^6/uL (4.35-5.55); RED CELL DISTRIBUTION WIDTH 16.1 % (11.5-14.0); SEGMENTED NEUTROPHILS % (AUTO) 54.3 % (42-78); WHITE BLOOD COUNT 6.1 10^3/uL (4.0-10.5)
[2017-04-18 05:16] LABS: ANION GAP 9 (5-19); BLOOD UREA NITROGEN 15 mg/dL (7-20); CALCIUM 8.7 mg/dL (8.4-10.2); CARBON DIOXIDE 27 mmol/L (22-30); CHLORIDE 102 mmol/L (98-107); CREATININE RESULT 1.06 mg/dL (0.52-1.25); GLUCOSE 120 mg/dL (75-110); POTASSIUM 3.7 mmol/L (3.6-5.0); SODIUM 137.5 mmol/L (137-145)
[2017-04-18] MEDS: THIAMINE HCL 100 MG TABLET PO SCH (10:26)
[2017-04-18] MEDS: POTASSIUM CHLORIDE 10 MEQ TABLET.SA PO SCH (10:26)
[2017-04-18] MEDS: FOLIC ACID 1 MG TABLET PO SCH (10:26)
[2017-04-18] MEDS: LEVETIRACETAM 500 MG TABLET PO SCH (10:26)
[2017-04-18] MEDS: LEVOTHYROXINE SODIUM 0.05 MG TABLET PO SCH (10:26)
[2017-04-18] MEDS: MULTIVITAMIN TABLET PO SCH (10:26)
[2017-04-18] MEDS: ENOXAPARIN SODIUM INJ 40 MG/0.4 ML DISP.SYRIN SUBCUT SCH (10:27)
[2017-04-18] MEDS: DOCUSATE SODIUM 100 MG CAPSULE PO SCH (10:27)
[2017-04-18 11:08] VITALS: BP 162/92
--- NOTE | 2017-04-18 13:28 | PDOC DISCHARGE SUMMARY ---
General - Admit/Disc Date/PCP Admission Date/Primary Care Provider: 04/14/17 04:08 Discharge Date: 04/18/17 - Discharge Diagnosis (1) Acute encephalopathy Is this a current diagnosis for this admission?: YesSummary: Secondary to seizure disorder and alcohol abuse. Has resolved. (2) Atrial fibrillation Is this a current diagnosis for this admission?: Yes (3) Cocaine abuse Is this a current diagnosis for this admission?: Yes (4) Hypokalemia Is this a current diagnosis for this admission?: Yes (5) Hypothyroidism (acquired) Is this a current diagnosis for this admission?: Yes (6) Marijuana abuse Is this a current diagnosis for this admission?: Yes (7) Seizure Is this a current diagnosis for this admission?: Yes - Additional Information Resuscitation Status: Full Code Discharge Diet: Cardiac Discharge Activity: Activity As Tolerated Home Medications: Aspirin [Aspirin 81 mg Chewable Tablet] 81 mg PO DAILY 04/14/17 Folic Acid [Folvite 1 mg Tablet] 1 mg PO DAILY tablet 04/18/17 Levetiracetam [Keppra 500 mg Tablet] 500 mg PO Q12 #60 tablet 04/18/17 Levothyroxine Sodium [Synthroid 0.05 mg Tablet] 0.05 mg PO QAM #30 tablet Multivitamin [Tab-A-Oziel (Multiple Vitamin) Tablet] 1 tab PO DAILY tablet 04/18 Potassium Chloride [Klor-Con 10 Meq Tablet.sa] 10 meq PO Q12 #60 tablet.sa 04/18 Thiamine HCl [Thiamine 100 mg Tablet] 100 mg PO DAILY tablet 04/18/17 History of Present Illness History of Present Illness: HAZEL SOFIA is a 71 year old male who presented via EMS after having a tonic- clonic seizure activity. Patient was given Versed and had resolution of the seizure activity. Patient has a history of a seizure in his childhood but was not on antiepileptic medications. He is an alcoholic and drinks half pint of whiskey a day also. He had not recently stops drinking. The patient also was tachycardic and noted to be in atrial fibrillation with a rapid ventricular rate. Patient was given diltiazem with control of his heart rhythm. Patient is admitted for further monitoring. Hospital Course Hospital Course: 71-year-old gentleman who history seizures and alcohol abuse who presented after having generalized tonic-clonic seizure. The patient was treated for possibility of alcohol withdrawal seizure with benzodiazepines and also was treated with Keppra. The patient had no further seizure activity. He was confused when he presented and he had encephalopathy initially thought to be secondary to his postictal state however it did not resolve after appropriate amount of time and there was most likely component of alcohol withdrawal which has since resolved. He also was noted to be positive for cocaine and marijuana although he has no Recollection of using either of those products. The patient had atrial fibrillation and was treated with IV diltiazem and his heart rate has remained normal since then. Physical Exam Vital Signs: Temp Pulse Resp BP Pulse Ox 98.5 F 63 16 162/92 H 98 04/18/17 10:00 04/18/17 10:00 04/18/17 10:00 04/18/17 10:00 04/18/17 10:00 Intake & Output 04/17/17 04/18/17 04/19/17 06:59 06:59 06:59 Intake Total 3186 3110 Output Total 3600 1625 Balance -414 1485 Weight 73.2 kg 71.8 kg General appearance: PRESENT: no acute distress Eye exam: PRESENT: conjunctiva pink, scleral icterus Mouth exam: PRESENT: moist, tongue midline Neck exam: ABSENT: JVD Respiratory exam: PRESENT: clear to auscultation robbin. ABSENT: rales, rhonchi, wheezes Cardiovascular exam: PRESENT: RRR. ABSENT: diastolic murmur, rubs, systolic murmur GI/Abdominal exam: PRESENT: normal bowel sounds, soft. ABSENT: distended, guarding, mass, organolmegaly, rebound, tenderness Extremities exam: ABSENT: calf tenderness, clubbing, pedal edema Neurological exam: PRESENT: alert, awake, oriented to person, oriented to place , oriented to time, oriented to situation, CN II-XII grossly intact. ABSENT: motor sensory deficit Psychiatric exam: PRESENT: appropriate affect Skin exam: PRESENT: dry, intact, warm. ABSENT: cyanosis, rash Results Laboratory Results: 04/18/17 04:32 04/18/17 04:32 04/18/17 04/18/17 04:32 04:32 WBC 6.1 RBC 4.52 Hgb 14.4 Hct 42.9 MCV 95 MCH 31.9 MCHC 33.6 RDW 16.1 H Plt Count 119 L Seg Neutrophils % 54.3 Lymphocytes % 33.8 Monocytes % 9.7 Eosinophils % 1.7 Basophils % 0.5 Absolute Neutrophils 3.3 Absolute Lymphocytes 2.1 Absolute Monocytes 0.6 Absolute Eosinophils 0.1 Absolute Basophils 0.0 Sodium 137.5 Potassium 3.7 Chloride 102 Carbon Dioxide 27 Anion Gap 9 BUN 15 Creatinine 1.06 Est GFR ( Amer) > 60 Est GFR (Non-Af Amer) > 60 Glucose 120 H Calcium 8.7 04/14/17 04/14/17 04/14/17 04:40 06:08 10:30 Troponin I Cancelled 0.017 0.035 Impressions: Head CT 04/13/17 23:33 IMPRESSION: No acute findings.Moderate left posterior parieto-occipital encephalomalacia/infarct. Chest X-Ray 04/13/17 23:34 IMPRESSION: No acute cardiopulmonary findings. Cervical Spine CT 04/13/17 23:38 IMPRESSION: NO ACUTE FINDINGS IN THE CERVICAL SPINE. Qualifiers PATEINT BEING DISCHARGED WITH ANY OF THE FOLLOWING DIAGNOSIS?: No Plan Discharge Plan: Discharged home in stable condition. Will follow up with primary care in 1-2 weeks. Time Spent: Greater than 30 Minutes
== END 2017-04-18 12:53 | disposition home or self-care (01) | DRG 101 ==
LOC: ER 23:22 → EH 04-14 04:07 → UNDOADMIN 04-14 04:07 → EH 04-14 04:08 → 3W 04-14 07:00
PROVIDERS: ADMIT Family Medicine; ATTEND Family Medicine
DX: G40.509 Epileptic seizures related to external causes, not intractable, without status epilepticus (principal); I69.951 Hemiplegia and hemiparesis following unspecified cerebrovascular disease affecting right dominant side; F10.239 Alcohol dependence with withdrawal, unspecified; G83.84 Todd's paralysis (postepileptic); G40.909 Epilepsy, unspecified, not intractable, without status epilepticus; G31.2 Degeneration of nervous system due to alcohol; F12.90 Cannabis use, unspecified, uncomplicated; I48.0 Paroxysmal atrial fibrillation; E87.6 Hypokalemia; E03.9 Hypothyroidism, unspecified; F14.10 Cocaine abuse, uncomplicated; D69.6 Thrombocytopenia, unspecified; F17.210 Nicotine dependence, cigarettes, uncomplicated; Y90.0 Blood alcohol level of less than 20 mg/100 ml
CPT/HCPCS: 36415; 70450; 71010; 72125; 80048; 80053; 80307; 81001; 82140; 82962; 83036; 83605; 83690; 83735; 84439; 84443; 84484; 85025; 85027; 85379; 93005; 93010; 93306; 96365; 96366; 96375; 99291; J1650; J1953; J2060; J3480; J3490; L0172

== ENCOUNTER 2017-08-29 12:20 | Inpatient (IN) | payer MEDICARE, OTHER ==
[2017-08-29 13:44] LABS: ABSOLUTE MONOCYTES (AUTO) 0.5 10^3/uL (0.1-1.4); ABSOLUTE NEUT (AUTO) 9.6 10^3/uL (1.7-8.2); BASOPHILS % (AUTO) 0.3 % (0-2); HEMOGLOBIN 17.5 g/dL (13.5-17.0); HGB HCT DIFFERENCE 1.5; LYMPHOCYTES % (AUTO) 16.3 % (13-45); MEAN CORPUSCULAR HEMOGLOBIN 32.7 pg (27.0-33.4); MEAN CORPUSCULAR HGB CONC 34.4 g/dL (32.0-36.0); MEAN CORPUSCULAR VOLUME 95 fl (80-97); MONOCYTES % (AUTO) 4.1 % (3-13); RED BLOOD COUNT 5.35 10^6/uL (4.35-5.55); RED CELL DISTRIBUTION WIDTH 14.4 % (11.5-14.0); SEGMENTED NEUTROPHILS % (AUTO) 79.3 % (42-78); WHITE BLOOD COUNT 12.2 10^3/uL (4.0-10.5)
[2017-08-29 13:49] LABS: ALANINE AMINOTRANSFERASE 19 U/L (21-72); ALBUMIN 4.5 g/dL (3.5-5.0); ALKALINE PHOSPHATASE 112 U/L (38-126); BILIRUBIN,DIRECT 0.7 mg/dL (0.0-0.4); BILIRUBIN,TOTAL 1.3 mg/dL (0.2-1.3); BLOOD UREA NITROGEN 13 mg/dL (7-20); CALCIUM 9.1 mg/dL (8.4-10.2); CREATININE RESULT 1.28 mg/dL (0.52-1.25); GLUCOSE 216 mg/dL (75-110); TOTAL PROTEIN 7.1 g/dL (6.3-8.2)
[2017-08-29 13:55] LABS: ASPARTATE AMINO TRANSFERASE 37 U/L (17-59)
[2017-08-29 13:59] LABS: CARBON DIOXIDE 11 mmol/L (22-30); CHLORIDE 98 mmol/L (98-107); POTASSIUM 3.6 mmol/L (3.6-5.0); SODIUM 140.8 mmol/L (137-145)
--- NOTE | 2017-08-29 13:59 | RADIOLOGY REPORT (SQ) ---
EXAM DESCRIPTION: CT HEAD WITHOUT COMPLETED DATE/TIME: 08/29/2017 1:41 pm REASON FOR STUDY: seizure COMPARISON: CT brain 04/13/2017 TECHNIQUE: Axial images acquired through the brain without intravenous contrast. Images reviewed wi th bone, brain and subdural windows. Images stored on PACS. All CT scanners at this facility use dose modulation, iterative reconstruction, and/or weight based d osing when appropriate to reduce radiation dose to as low as reasonably achievable (ALARA). [facility]: Dose Right [facility]: CareDose [facility]: Dose Right [facility]: Teradose 4D [facility]: [employer] RADIATION DOSE: Up-to-date CT equipment and radiation dose reduction techniques were employed. CTDIv ol: 64.6 mGy. DLP: 1034 mGy-cm. mGy. LIMITATIONS: None. FINDINGS: VENTRICLES: Normal size and contour. CEREBRUM: Old chronic appearing ischemic change in the left basal ganglia, left occipital cortex and subcortical white matter, and left parietal lobe cortex and subcortical white matter. No CT evidence of acute large territory ischemic change, acute intracranial hemorrhage, mass effect, or midline shif t. CEREBELLUM: No masses. No hemorrhage. No alteration of density. No evidence for acute infarction. EXTRAAXIAL SPACES: No fluid collections. No masses. ORBITS AND GLOBE: No intra- or extraconal masses. Normal contour of globe without masses. CALVARIUM: No fracture. PARANASAL SINUSES: No fluid or mucosal thickening. SOFT TISSUES: No mass or hematoma. OTHER: No other significant finding. 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 COMMENT: Quality ID # [id number]: Final reports with documentation of one or more dose reduction techniques (e.g., Automated exposure control, adjustment of the mA and/or kV according to patient size, use of iterative reconstruction technique) TECHNICAL DOCUMENTATION: JOB ID: [id number] [employer]- All Rights Reserved
[2017-08-29 14:03] LABS: ALCOHOL < 10 mg/dL (NONE DETECTED)
[2017-08-29 14:04] LABS: ANION GAP 32 (5-19)
--- NOTE | 2017-08-29 14:23 | ER Document Report ---
ED General - General Chief Complaint: Seizure Stated Complaint: POSSIBLE SEIZURE Time Seen by Provider: 08/29/17 13:34 Information source: Patient Notes: 72-year-old male with past medical history of alcoholism, back pain, PTSD, was followed by the [facility] who presents today after a witnessed tonic-clonic seizure by his granddaughter. Patient states he started to drink again 1 year ago. He states he drinks between 4-8 shots a day. Patient states he last drank about 48 hours ago. Patient was on his way home with his granddaughter from the liquor store, having yet to drink any alcoholic beverages, when the seizure occurred. Patient states now a mild frontal headache. He denies any blurry vision, weakness or numbness. Patient states he has a known baseline dilated left pupil. Patient denies any chest pain, nausea, vomiting, abdominal pain, or fevers. TRAVEL OUTSIDE OF THE [place] IN LAST 30 DAYS: No - HPI Onset: Just prior to arrival Onset/Duration: Gone Quality of pain: Achy Severity: Mild Pain Level: 1 Associated symptoms: Other - See above Exacerbated by: Denies Relieved by: Denies Similar symptoms previously: Yes Recently seen / treated by doctor: No - Related Data Allergies/Adverse Reactions: No Known Allergies Allergy (Unverified 04/14/17 04:25) Past Medical History - General Information source: Patient - Social History Smoking Status: Unknown if Ever Smoked Cigarette use (# per day): No Chew tobacco use (# tins/day): No Smoking Education Provided: No Frequency of alcohol use: Heavy Drug Abuse: Marijuana Family History: Reviewed & Not Pertinent Patient has suicidal ideation: No Patient has homicidal ideation: No Neurological Medical History: Reports: Hx Seizures - as child Renal/ Medical History: Denies: Hx Peritoneal Dialysis - Immunizations Hx Diphtheria, Pertussis, Tetanus Vaccination: - unknown Review of Systems - Review of Systems Constitutional: denies: Fever EENT: denies: Eye discharge, Nose discharge Cardiovascular: denies: Chest pain, Palpitations Respiratory: denies: Short of breath Gastrointestinal: denies: Vomiting Genitourinary: denies: Dysuria Musculoskeletal: denies: Leg swelling Skin: Other - no hives. denies: Rash Neurological/Psychological: Other - no slurred speech -: Yes All other systems reviewed and negative Physical Exam - Vital signs Vitals: Resp BP Pulse Ox 23 H 142/92 H 94 08/29/17 12:30 08/29/17 12:30 08/29/17 12:30 Notes: Reviewed vital signs and nursing note as charted by RN. CONSTITUTIONAL: Alert and oriented and responds appropriately to questions. Patient does have mild tremors to all 4 extremities HEAD: Normocephalic; atraumatic EYES: Sclerae non-icteric ENT: Normal nose; no rhinorrhea; moist mucous membranes; pharynx without lesions noted NECK: Supple without meningismus; non-tender; no cervical lymphadenopathy, no masses CARD: Regular rate and rhythm; no murmurs, no clicks, no rubs, no gallops; symmetric distal pulses RESP: Normal chest excursion without splinting or tachypnea; breath sounds clear and equal bilaterally; no wheezes, no rhonchi, no rales ABD/GI: Normal bowel sounds; non-distended; soft, non-tender, no rebound, no guarding; no palpable organomegaly or masses BACK: The back appears normal and is non-tender to palpation, there is no CVA tenderness EXT: Normal ROM in all joints; non-tender to palpation; no edema SKIN: No acute lesions noted NEURO: CN II through XII are intact with some anisocoria with the left pupil greater than the right. Patient states this is baseline and "has been told this many times at the [facility]". Patient has 5 out of 5 bilateral upper and lower extremity strength or sensation intact light touch PSYCH: The patient's mood and manner are appropriate. Grooming and personal hygiene are appropriate. Course - Re-evaluation Re-evalutation: 08/29/17 14:23 EKG shows a heart rate of 90, normal sinus rhythm, minimal left axis deviation, poor R-wave progression, possible minimal ST depression in leads V4 through V6. 08/29/17 14:37 Given the above history and physical examination, stat CT scan of the head was performed. This was performed within 4 hours of the patient's presentation and headache. Patient does state he had a mild frontal headache yesterday but denies any headache this afternoon prior to the incident. I do believe subarachnoid hemorrhage and acute bacterial meningitis to be unlikely. Patient denies any blurry vision. He states he has baseline anisocoria. Patient has no focal neurological deficits. CT scan of the head as recorded. Labs as recorded. I am concerned about possible alcohol withdrawal seizure given the mild tremors as well as the seizure. Patient states he had an alcohol withdrawal seizure in 1969. Patient states he would like to stop drinking alcohol. Given the above information, I believe he should be admitted for further evaluation and placed on Ativan which I have initiated. - Vital Signs Vital signs: Temp Pulse Resp BP Pulse Ox 97.3 F 114 H 19 133/93 H 93 08/29/17 12:32 08/29/17 12:32 08/29/17 14:01 08/29/17 14:01 08/29/17 14:01 - Laboratory Result Diagrams: 08/29/17 12:30 08/29/17 12:30 Laboratory results interpreted by me: 08/29/17 08/29/17 12:30 12:30 WBC 12.2 H Hgb 17.5 H RDW 14.4 H Plt Count 148 L Seg Neutrophils % 79.3 H Absolute Neutrophils 9.6 H Carbon Dioxide 11 L Anion Gap 32 H Creatinine 1.28 H Est GFR (Non-Af Amer) 55 L Glucose 216 H Direct Bilirubin 0.7 H ALT 19 L Discharge - Discharge Clinical Impression: Seizure Alcohol withdrawal Qualifiers: Complication of substance-induced condition: with unspecified complication Qualified Code(s): F10.239 - Alcohol dependence with withdrawal, unspecified Condition: Fair Disposition: ADMITTED OBSERVATION Admitting Provider: Hospitalist Unit Admitted: Telemetry
[2017-08-29] MEDS ORDERED: NORMAL SALINE 1000 ML 1,000 ML IV ONE (14:31)
[2017-08-29] MEDS ORDERED: LORAZEPAM INJ 2 MG/1 ML VIAL IV ONE (14:31)
[2017-08-29] MEDS ORDERED: ONDANSETRON HCL INJ/PF 4 MG/2 ML SDV IV PRN (15:19)
[2017-08-29] MEDS ORDERED: LORAZEPAM INJ 2 MG/1 ML VIAL IV PRN (15:26)
--- NOTE | 2017-08-29 15:51 | PDOC H&P ---
History of Present Illness Admission Date/PCP: 08/29/17 15:07 Patient complains of: seizure in an alcoholic History of Present Illness: HAZEL SOFIA is a 72 year old male with history of stroke, back pain, PTSD and chronic heart alcoholism dating back several decades. He has history of alcohol withdrawal seizure back in the 1970s. He states he quit drinking for about 5 years and he started drinking 1 year ago. He admits to drinking about 8 shots every day. His last drink was last evening. The patient was on his way back home from the liquid stool when he started having a generalized tonic- clonic seizure that was witnessed by the granddaughter. He was brought to the emergency room and has not had any further seizures. He complains of mild frontal headache, denies any focal neurologic deficit, denies any chest pain, shortness of breath, nausea, vomiting, or diarrhea. He has not had any fever or chills. He states that he has been doing relatively well until this incident. In the emergency room, head CT scan showed evidence of an old stroke, he has been started on IV fluids and has received if his dose of IV Ativan. He complains of increase tremulousness. Past Medical History Neurological Medical History: Reports: Seizures - as child Psychiatric Medical History: Reports: Alcohol Dependency Social History Smoking Status: Unknown if Ever Smoked Frequency of Alcohol Use: Heavy Hx Recreational Drug Use: Yes - Uncertain Drugs: None - Uncertain if illicit drug usage - Advance Directive Surrogate healthcare decision maker:: daughter Family History Family History: Reviewed & Not Pertinent Parental Family History Reviewed: Yes Children Family History Reviewed: Yes Sibling(s) Family History Reviewed.: No Medication/Allergy Allergies/Adverse Reactions: No Known Allergies Allergy (Unverified 04/14/17 04:25) Review of Systems All systems: reviewed and no additional remarkable complaints except as stated Constitutional: PRESENT: fatigue Nose, Mouth, and Throat: PRESENT: headache(s) Neurological: PRESENT: convulsions Physical Exam Vital Signs: Temp Pulse Resp BP Pulse Ox 97.3 F 114 H 19 133/93 H 93 08/29/17 12:32 08/29/17 12:32 08/29/17 14:01 08/29/17 14:01 08/29/17 14:01 General appearance: PRESENT: no acute distress, cooperative, disheveled, well- developed Head exam: PRESENT: atraumatic, normocephalic Eye exam: PRESENT: conjunctiva pink, EOMI Neck exam: PRESENT: full ROM Respiratory exam: PRESENT: clear to auscultation robbin, unlabored Cardiovascular exam: PRESENT: RRR, +S1, +S2 Pulses: PRESENT: normal carotid pulses, normal radial pulses GI/Abdominal exam: PRESENT: normal bowel sounds, soft. ABSENT: ascites, diminished bowel sounds, distended, firm, guarding, hernia, hyperactive bowel sounds, hypoactive bowel sounds, mass, Majano's sign, organolmegaly, rebound, rigid, tenderness, other Extremities exam: PRESENT: full ROM. ABSENT: calf tenderness, clubbing, joint swelling, pedal edema, tenderness, +1 edema, +2 edema, other Musculoskeletal exam: PRESENT: ambulatory, full ROM. ABSENT: deformity, dislocation, normal inspection, tenderness, other Neurological exam: PRESENT: alert, awake, oriented to person, oriented to place , oriented to time, oriented to situation, reflexes normal, CN II-XII grossly intact, normal gait Psychiatric exam: PRESENT: anxious Skin exam: PRESENT: dry Results Laboratory Results: Blood chemistry as well as hematology labs reviewed by myself. Creatinine is elevated over baseline Impressions: Head CT 08/29/17 00:00 IMPRESSION: Old infarcts in the left hemisphere No acute intracranial changes EVIDENCE OF ACUTE STROKE: NO. Assessment & Plan - Diagnosis (1) Alcohol withdrawal Qualifiers: Complication of substance-induced condition: with unspecified complication Is this a current diagnosis for this admission?: Yes Plan: Admits to drinking 8 shots of whiskey daily. Last drink last night. We will start patient on alcohol withdrawal protocol. Ativan, oral and IV, with thiamine, magnesium and folic acid (2) Seizure Is this a current diagnosis for this admission?: Yes Plan: Likely due to alcohol withdrawal. Head CT scan with no acute abnormality. 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 (5) DVT prophylaxis Is this a current diagnosis for this admission?: Yes Plan: Subcutaneous Lovenox - Time Time Spent: Greater than 70 Minutes Anticipated discharge: Home - Inpatient Certification Medical Necessity: Need For Continuous Telemetry Monitoring - Plan to discharge if seizure-free for 24 hours with no evidence of severe alcohol withdrawal, Risk of Complication if Not Cared For in Hospital
[2017-08-29] MEDS: NORMAL SALINE 1000 ML 1,000 ML IV PRN (15:53)
[2017-08-29] MEDS ORDERED: LORAZEPAM INJ 2 MG/1 ML VIAL IV SCH (16:30)
[2017-08-29] MEDS: LORAZEPAM 1 MG TABLET PO SCH ×2 (17:33→22:34)
[2017-08-29] MEDS: NORMAL SALINE 1000 ML 1,000 ML with POTASSIUM CHLORIDE 20 MEQ, MAGNESIUM SULFATE 8 MEQ,... IV SCH ×5 (18:05)
[2017-08-29] MEDS ORDERED: PHARMACY COMMUNICATION ORDER MC PRN (18:46)
[2017-08-29 21:31] LABS: URINE BARBITURATES SCREEN NEGATIVE; URINE METHADONE SCREEN NEGATIVE; URINE OPIATES LOW NEGATIVE; URINE PHENCYCLIDINE SCREEN NEGATIVE
[2017-08-29] MEDS: FAMOTIDINE 20 MG TABLET PO SCH (22:33)
[2017-08-30] MEDS: NORMAL SALINE 1000 ML 1,000 ML IV PRN ×2 (02:17→14:13)
[2017-08-30] MEDS: ZOLPIDEM TARTRATE 5 MG TABLET PO SCH (03:51)
[2017-08-30] MEDS: LORAZEPAM 1 MG TABLET PO SCH ×3 (05:19→22:35)
[2017-08-30 07:22] LABS: ABSOLUTE EOSINOPHILS # (AUTO) 0.1 10^3/uL (0.0-0.6); ABSOLUTE LYMPHOCYTES (AUTO) 1.6 10^3/uL (0.5-4.7); ABSOLUTE MONOCYTES (AUTO) 0.4 10^3/uL (0.1-1.4); ABSOLUTE NEUT (AUTO) 4.7 10^3/uL (1.7-8.2); BASOPHILS % (AUTO) 0.2 % (0-2); EOSINOPHILS % (AUTO) 1.4 % (0-6); HEMATOCRIT 43.9 % (37.9-51.0); HGB HCT DIFFERENCE 1.7; LYMPHOCYTES % (AUTO) 23.3 % (13-45); MEAN CORPUSCULAR HEMOGLOBIN 32.9 pg (27.0-33.4); MEAN CORPUSCULAR HGB CONC 34.7 g/dL (32.0-36.0); MEAN CORPUSCULAR VOLUME 95 fl (80-97); MONOCYTES % (AUTO) 5.5 % (3-13); RED BLOOD COUNT 4.62 10^6/uL (4.35-5.55); SEGMENTED NEUTROPHILS % (AUTO) 69.6 % (42-78); WHITE BLOOD COUNT 6.8 10^3/uL (4.0-10.5)
[2017-08-30 07:33] LABS: ALANINE AMINOTRANSFERASE 27 U/L (21-72); ALBUMIN 3.2 g/dL (3.5-5.0); ALKALINE PHOSPHATASE 70 U/L (38-126); ANION GAP 11 (5-19); ASPARTATE AMINO TRANSFERASE 36 U/L (17-59); BILIRUBIN,DIRECT 0.5 mg/dL (0.0-0.4); BILIRUBIN,TOTAL 1.2 mg/dL (0.2-1.3); BLOOD UREA NITROGEN 12 mg/dL (7-20); CHLORIDE 105 mmol/L (98-107); CREATININE RESULT 1.26 mg/dL (0.52-1.25); GLUCOSE 92 mg/dL (75-110); MAGNESIUM 2.3 mg/dL (1.6-2.3); POTASSIUM 3.2 mmol/L (3.6-5.0); SODIUM 142.6 mmol/L (137-145); TOTAL PROTEIN 5.6 g/dL (6.3-8.2)
[2017-08-30 07:44] LABS: CARBON DIOXIDE 27 mmol/L (22-30)
[2017-08-30] MEDS ORDERED: POTASSIUM CHLORIDE 10 MEQ TABLET.SA PO ONE (07:50)
[2017-08-30 07:53] LABS: HEMOGLOBIN 15.2 g/dL (13.5-17.0)
--- NOTE | 2017-08-30 08:22 | PDOC PROGRESS REPORT ---
Subjective Progress Note for:: 08/30/17 Subjective:: Day 1 of hospitalization: Follow-up visit for alcohol withdrawal seizure in a patient with chronic alcohol abuse 72-year-old male with history of chronic alcohol abuse and alcohol withdrawal seizures presented to the hospital after having his weakness seizure in the car on his way from the liquor store. Overnight events noted. Patient continues to complain of increase tremulousness , generalized weakness. No further seizures noted since admission. Denies chest pain shortness of breath, nausea, vomiting, diarrhea, any focal neurologic deficit. Admits to having some headache. Has remained afebrile since admission Physical Exam Vital Signs: Temp Pulse Resp BP Pulse Ox 97.6 F 75 18 123/77 100 08/30/17 07:35 08/30/17 07:35 08/30/17 07:35 08/30/17 07:35 08/30/17 07:35 Intake & Output 08/29/17 08/30/17 08/31/17 06:59 06:59 06:59 Intake Total 2004 Output Total 350 Balance 1654 Weight 71.7 kg General appearance: PRESENT: no acute distress, cooperative, thin Head exam: PRESENT: atraumatic, normocephalic Respiratory exam: PRESENT: clear to auscultation robbin, symmetrical. ABSENT: accessory muscle use, chest wall tenderness, crackles, decreased breath sounds, prolonged expiratory phas, rales, retraction, rhonchi, stridor, tachypnea, unlabored, wheezes, other Cardiovascular exam: PRESENT: RRR, +S1, +S2. ABSENT: bradycardia, clicks, diastolic murmur, gallop, irregular rhythm, rubs, systolic murmur, tachycardia, other GI/Abdominal exam: PRESENT: normal bowel sounds, soft. ABSENT: ascites, diminished bowel sounds, distended, firm, guarding, hernia, hyperactive bowel sounds, hypoactive bowel sounds, mass, Majano's sign, organolmegaly, rebound, rigid, tenderness, other Neurological exam: PRESENT: alert, awake, oriented to person, oriented to place , oriented to time, oriented to situation, reflexes normal, CN II-XII grossly intact Psychiatric exam: PRESENT: anxious, depressed Results Laboratory Results: 08/30/17 06:57 08/30/17 06:57 08/30/17 08/30/17 08/30/17 06:57 06:57 06:57 WBC 6.8 RBC 4.62 Hgb 15.2 D Hct 43.9 MCV 95 MCH 32.9 MCHC 34.7 RDW 14.0 Plt Count 83 L Seg Neutrophils % 69.6 Lymphocytes % 23.3 Monocytes % 5.5 Eosinophils % 1.4 Basophils % 0.2 Absolute Neutrophils 4.7 Absolute Lymphocytes 1.6 Absolute Monocytes 0.4 Absolute Eosinophils 0.1 Absolute Basophils 0.0 Sodium 142.6 Potassium 3.2 L Chloride 105 Carbon Dioxide 27 D Anion Gap 11 BUN 12 Creatinine 1.26 H Est GFR ( Amer) > 60 Est GFR (Non-Af Amer) 56 L Glucose 92 Calcium 8.0 L Magnesium 2.3 Total Bilirubin 1.2 AST 36 ALT 27 Alkaline Phosphatase 70 Total Protein 5.6 L Albumin 3.2 L TSH 0.70 08/29/17 08/30/17 08/30/17 18:29 00:49 06:57 Troponin I 0.020 0.020 0.016 Impressions: Head CT 08/29/17 00:00 IMPRESSION: Old infarcts in the left hemisphere No acute intracranial changes EVIDENCE OF ACUTE STROKE: NO. Assessment & Plan - Diagnosis (1) Alcohol withdrawal Qualifiers: Complication of substance-induced condition: with unspecified complication Qualified Code(s): F10.239 - Alcohol dependence with withdrawal, unspecified Is this a current diagnosis for this admission?: Yes Plan: Admits to drinking 8 shots of whiskey daily. Last drink was the night of . Continue alcohol withdrawal protocol with tapering Ativan dosing. Continue thiamine, magnesium and folic acid. Further alcohol abuse strongly discouraged (2) Seizure Is this a current diagnosis for this admission?: Yes Plan: Due to alcohol withdrawal. Head CT scan with no acute abnormality. Continue Ativan prn as ordered. Maintain seizure precautions (3) ALEXANDER (acute kidney injury) Is this a current diagnosis for this admission?: Yes Plan: ALEXANDER, non-oliguric on likely CKD III. Continue IV fluids as ordered (4) Anisocoria Is this a current diagnosis for this admission?: Yes Plan: Chronic. (5) Hypokalemia Is this a current diagnosis for this admission?: Yes Plan: Replete and recheck (6) DVT prophylaxis Is this a current diagnosis for this admission?: Yes Plan: Subcutaneous Lovenox - Time Time Spent with patient: 25-34 minutes Medications reviewed and adjusted accordingly: Yes Anticipated discharge: Home Within: within 24 hours - Inpatient Certification Medical Necessity: Need For Continuous Telemetry Monitoring - Plan to discharge home in a.m. if no further seizures and if symptoms of alcohol withdrawal significantly improved, Risk of Complication if Not Cared For in Hospital
--- NOTE | 2017-08-30 09:38 | EKG REPORT ---
SEVERITY:- ABNORMAL ECG - SINUS RHYTHM LEFT AXIS DEVIATION BORDERLINE R WAVE PROGRESSION, ANTERIOR LEADS NONSPECIFIC REPOL ABNORMALITY, DIFFUSE LEADS : Confirmed by: Demetri Ayon 30-Aug-2017 09:38:21
[2017-08-30] MEDS ORDERED: ENOXAPARIN SODIUM INJ 40 MG/0.4 ML DISP.SYRIN SUBCUT SCH (10:00)
[2017-08-30] MEDS: FOLIC ACID 1 MG TABLET PO SCH (10:20)
[2017-08-30] MEDS: DOCUSATE SODIUM 100 MG CAPSULE PO SCH (10:20)
[2017-08-30] MEDS: FAMOTIDINE 20 MG TABLET PO SCH ×2 (10:20→22:35)
[2017-08-30] MEDS ORDERED: LORAZEPAM 1 MG TABLET PO SCH (10:30)
[2017-08-30] MEDS ORDERED: LORAZEPAM INJ 2 MG/1 ML VIAL IV SCH (10:30)
[2017-08-30] MEDS ORDERED: LORAZEPAM INJ 2 MG/ML VIAL (4 MG PRN DOSE) IV (10:30)
[2017-08-30] MEDS: OXYCODONE HCL IR 5 MG TABLET PO PRN (14:12)
[2017-08-30] MEDS: NORMAL SALINE 1000 ML 1,000 ML with POTASSIUM CHLORIDE 20 MEQ, MAGNESIUM SULFATE 8 MEQ,... IV SCH ×5 (17:21)
[2017-08-31] MEDS ORDERED: ASPIRIN 81 MG TABLET, CHEWABLE PO ONE (02:51)
[2017-08-31] MEDS: ZOLPIDEM TARTRATE 5 MG TABLET PO SCH ×2 (02:53→22:06)
[2017-08-31] MEDS ORDERED: METOPROLOL SUCCINATE 25 MG TAB.SR.24H PO ONE (03:15)
[2017-08-31 03:57] LABS: ABSOLUTE EOSINOPHILS # (AUTO) 0.2 10^3/uL (0.0-0.6); ABSOLUTE LYMPHOCYTES (AUTO) 1.8 10^3/uL (0.5-4.7); ABSOLUTE MONOCYTES (AUTO) 0.3 10^3/uL (0.1-1.4); ABSOLUTE NEUT (AUTO) 3.5 10^3/uL (1.7-8.2); BASOPHILS % (AUTO) 0.5 % (0-2); EOSINOPHILS % (AUTO) 3.4 % (0-6); HEMATOCRIT 40.7 % (37.9-51.0); HEMOGLOBIN 14.2 g/dL (13.5-17.0); HGB HCT DIFFERENCE 1.9; LYMPHOCYTES % (AUTO) 30.9 % (13-45); MEAN CORPUSCULAR HEMOGLOBIN 33.1 pg (27.0-33.4); MEAN CORPUSCULAR HGB CONC 34.9 g/dL (32.0-36.0); MEAN CORPUSCULAR VOLUME 95 fl (80-97); MONOCYTES % (AUTO) 4.8 % (3-13); RED BLOOD COUNT 4.29 10^6/uL (4.35-5.55); RED CELL DISTRIBUTION WIDTH 14.2 % (11.5-14.0); SEGMENTED NEUTROPHILS % (AUTO) 60.4 % (42-78); WHITE BLOOD COUNT 5.8 10^3/uL (4.0-10.5)
[2017-08-31 04:01] LABS: ANION GAP 9 (5-19); BLOOD UREA NITROGEN 10 mg/dL (7-20); CARBON DIOXIDE 24 mmol/L (22-30); CHLORIDE 109 mmol/L (98-107); CREATINE KINASE 437 U/L (55-170); CREATININE RESULT 1.11 mg/dL (0.52-1.25); GLUCOSE 87 mg/dL (75-110); MAGNESIUM 2.2 mg/dL (1.6-2.3); POTASSIUM 3.3 mmol/L (3.6-5.0)
[2017-08-31 04:34] LABS: TROPONIN I < 0.012 ng/mL
[2017-08-31] MEDS ORDERED: POTASSIUM CHLORIDE 10 MEQ TABLET.SA PO ONE (05:00)
[2017-08-31] MEDS: LORAZEPAM 1 MG TABLET PO SCH ×4 (05:24→23:42)
--- NOTE | 2017-08-31 09:02 | PDOC PROGRESS REPORT ---
Subjective Progress Note for:: 08/31/17 Subjective:: Day 1 of hospitalization: Follow-up visit for alcohol withdrawal seizure in a patient with chronic alcohol abuse 72-year-old male with history of chronic alcohol abuse and alcohol withdrawal seizures, paroxysmal A. fib status post cardioversion in September 2016, who presented to the hospital after having his weakness seizure in the car on his way from the liquor store. He was admitted for alcohol withdrawal seizure and started on a tapering dose of oral lorazepam. Last night the patient transiently went into A. fib with RVR. Overnight events noted. Patient went transiently into A. fib RVR. Is currently normal sinus rhythm with episodes of tachycardia on telemetry. He was also significantly agitated overnight requiring a bedside sitter. This morning patient is calmer. He states that he is less tremulousness, but continues to complain of generalized weakness. No further seizures noted since admission. Denies chest pain shortness of breath, nausea, vomiting, diarrhea, any focal neurologic deficit. Admits to having some headache. Has remained afebrile since admission Physical Exam Vital Signs: Temp Pulse Resp BP Pulse Ox 97.6 F 78 18 139/87 H 100 08/31/17 08:06 08/31/17 08:06 08/31/17 08:06 08/31/17 08:06 08/31/17 08:06 Intake & Output 08/30/17 08/31/17 09/01/17 06:59 06:59 06:59 Intake Total 2003 1307 Output Total 350 2950 Balance 1654 -1643 Weight 71.7 kg 73.2 kg General appearance: PRESENT: no acute distress, cooperative, disheveled, well- developed Head exam: PRESENT: atraumatic, normocephalic Eye exam: PRESENT: conjunctiva pink, EOMI, PERRLA. ABSENT: conjunctival injection, conjunctiva pale, nystagmus, periorbital swelling, scleral icterus Respiratory exam: PRESENT: clear to auscultation robbin, symmetrical, unlabored. ABSENT: accessory muscle use, chest wall tenderness, crackles, decreased breath sounds, prolonged expiratory phas, rales, retraction, rhonchi, stridor, tachypnea, wheezes, other Cardiovascular exam: PRESENT: RRR, +S1, systolic murmur, tachycardia, other. ABSENT: bradycardia, clicks, diastolic murmur, gallop, irregular rhythm, rubs, + S2 GI/Abdominal exam: PRESENT: normal bowel sounds, soft. ABSENT: ascites, diminished bowel sounds, distended, firm, guarding, hernia, hyperactive bowel sounds, hypoactive bowel sounds, mass, Majano's sign, organolmegaly, rebound, rigid, tenderness Neurological exam: PRESENT: awake, oriented to person, oriented to place, oriented to time, oriented to situation, reflexes normal, CN II-XII grossly intact Results Laboratory Results: 08/31/17 03:40 08/31/17 03:40 08/31/17 08/31/17 03:40 03:40 WBC 5.8 RBC 4.29 L Hgb 14.2 Hct 40.7 MCV 95 MCH 33.1 MCHC 34.9 RDW 14.2 H Plt Count 67 L Seg Neutrophils % 60.4 Lymphocytes % 30.9 Monocytes % 4.8 Eosinophils % 3.4 Basophils % 0.5 Absolute Neutrophils 3.5 Absolute Lymphocytes 1.8 Absolute Monocytes 0.3 Absolute Eosinophils 0.2 Absolute Basophils 0.0 Sodium 142.0 Potassium 3.3 L Chloride 109 H Carbon Dioxide 24 Anion Gap 9 BUN 10 Creatinine 1.11 Est GFR ( Amer) > 60 Est GFR (Non-Af Amer) > 60 Glucose 87 Calcium 8.0 L Magnesium 2.2 08/29/17 08/30/17 08/30/17 18:29 00:49 06:57 Creatine Kinase CK-MB (CK-2) Troponin I 0.020 0.020 0.016 08/31/17 08/31/17 03:40 03:40 Creatine Kinase 437 H CK-MB (CK-2) 2.60 Troponin I < 0.012 Impressions: Head CT 08/29/17 00:00 IMPRESSION: Old infarcts in the left hemisphere No acute intracranial changes EVIDENCE OF ACUTE STROKE: NO. Status: Image reviewed by me Assessment & Plan - Diagnosis (1) Alcohol withdrawal Qualifiers: Complication of substance-induced condition: with unspecified complication Qualified Code(s): F10.239 - Alcohol dependence with withdrawal, unspecified Is this a current diagnosis for this admission?: Yes Plan: Admits to drinking 8 shots of whiskey daily. Last drink was the night of . He continues to have evidence of active alcohol withdrawal. Continue alcohol withdrawal protocol with tapering Ativan dosing. Continue thiamine, magnesium and folic acid. Further alcohol abuse strongly discouraged (2) Seizure Is this a current diagnosis for this admission?: Yes Plan: Due to alcohol withdrawal. No further seizures since admission. Head CT scan with no acute abnormality. Continue Ativan prn as ordered. Maintain seizure precautions (3) Atrial fibrillation status post cardioversion Is this a current diagnosis for this admission?: Yes Plan: Paroxysmal atrial fibrillation status post cardioversion in 09/2016. Patient will transiently in A. fib with RVR overnight. Currently normal sinus rhythm. [id number] VASc score 4 (HTN, AGE, past CVA). High risk of bleeding given continued alcohol abuse and withdrawal seizures. Cardiology, Dr. Ayon, consulted (4) Thrombocytopenia Is this a current diagnosis for this admission?: No Plan: Platelets 62 [148]. Heparin products discontinued. Antiplatelets antibodies pending. Hematology, Dr. Mckee, consulted (5) ALEXANDER (acute kidney injury) Is this a current diagnosis for this admission?: Yes Plan: ALEXANDER, non-oliguric on likely CKD III. Continue IV fluids and follow renal function (6) Hypokalemia Plan: Replete and recheck (7) Anisocoria Is this a current diagnosis for this admission?: Yes Plan: Chronic. (8) DVT prophylaxis Is this a current diagnosis for this admission?: Yes Plan: Subcutaneous Lovenox discontinued due to thrombocytopenia. Maintained on SCDs
[2017-08-31] MEDS: FOLIC ACID 1 MG TABLET PO SCH (09:17)
[2017-08-31] MEDS ORDERED: LORAZEPAM INJ 2 MG/ML VIAL (4 MG PRN DOSE) IV (09:17)
[2017-08-31] MEDS: DOCUSATE SODIUM 100 MG CAPSULE PO SCH (09:17)
[2017-08-31] MEDS: FAMOTIDINE 20 MG TABLET PO SCH ×2 (09:17→22:07)
[2017-08-31] MEDS: METOPROLOL SUCCINATE 50 MG TAB.SR.24H PO SCH ×2 (09:27→22:07)
[2017-08-31] MEDS ORDERED: ENOXAPARIN SODIUM INJ 80 MG/0.8 ML DISP.SYRIN SUBCUT SCH (10:00)
[2017-08-31] MEDS ORDERED: METOPROLOL SUCCINATE 25 MG TAB.SR.24H PO SCH (10:00)
[2017-08-31] MEDS: OXYCODONE HCL IR 5 MG TABLET PO PRN ×2 (10:18→18:11)
--- NOTE | 2017-08-31 10:42 | PDOC CONSULTATION ---
Consultation Consult Date: 08/31/17 Consult reason:: Thrombocytopenia History of Present Illness Admission Date/PCP: 08/29/17 15:07 History of Present Illness: Mr. Fam is a 72 year old gentleman who states that he has been told in the past that his blood counts were low, but they always come back to normal. He states that he has seen a conditioning yard supervisor in the past, but this was long ago. He states that he passed out and this is why he was admitted to the hospital. Currently, he feels "woozy". He has a severe headache and is back is hurting. According to medical records, he was admitted earlier this year with a PLT count of 160. The following day, his PLT count was 85 and 1 week later, it had risen to 119. He has also been treated in the past for SVT and long-term anticoagulation has been recommended. Past Medical History Past Medical History: Patient tells me that he has fibromyalgia and hyperlipidemia, as well as multiple other problems, but he cannot remember any of them currently. Neurological Medical History: Reports: Seizures - as child Psychiatric Medical History: Reports: Alcohol Dependency, Depression Past Surgical History Past Surgical History: ORIF Right wrist after injury. He denies any other surgeries. Social History Smoking Status: Former Smoker Frequency of Alcohol Use: Heavy Hx Recreational Drug Use: Yes - Uncertain Drugs: Marijuana Hx Prescription Drug Abuse: No Past Social History Note: He tells me that he lives with his grand-daughter and her . He has 2 biological children, 5 grandchildren and 5 great-grandchildren. He is on disability through the [employer]. His favorite drink is Vodka. Family History Family History: Father of an aneurism. Mother of natural causes. He has 6 siblings, all of whom are living and healthy. Parental Family History Reviewed: Yes Children Family History Reviewed: Yes Sibling(s) Family History Reviewed.: Yes Medication/Allergy Home Medications: Folic Acid 1 mg PO DAILY #90 tablet 08/30/17 Thiamine HCl [Thiamine 100 mg Tablet] 100 mg PO DAILY #90 tablet 08/30/17 Allergies/Adverse Reactions: No Known Allergies Allergy (Unverified 04/14/17 04:25) Review of Systems Constitutional: PRESENT: fatigue, weakness Eyes: ABSENT: visual disturbances Ears: ABSENT: hearing changes Nose, Mouth, and Throat: ABSENT: sore throat Cardiovascular: PRESENT: as per HPI Respiratory: ABSENT: cough Gastrointestinal: ABSENT: diarrhea, nausea Genitourinary: ABSENT: difficulty urinating Musculoskeletal: PRESENT: back pain Neurological: PRESENT: other - Headache Endocrine: PRESENT: other - Woozy Physical Exam Vital Signs: Temp Pulse Resp BP Pulse Ox 97.6 F 78 18 139/87 H 100 08/31/17 08:06 08/31/17 08:06 08/31/17 08:06 08/31/17 08:06 08/31/17 08:06 Intake & Output 08/30/17 08/31/17 09/01/17 06:59 06:59 06:59 Intake Total 2003 1307 Output Total 350 2950 Balance 1654 -1643 Weight 71.7 kg 73.2 kg General appearance: PRESENT: no acute distress, thin Exam: male. Lying in bed. Head exam: PRESENT: atraumatic, normocephalic Eye exam: PRESENT: PERRLA. ABSENT: scleral icterus Mouth exam: PRESENT: moist, tongue midline Neck exam: ABSENT: lymphadenopathy, tenderness Respiratory exam: PRESENT: clear to auscultation robbin Cardiovascular exam: PRESENT: RRR. ABSENT: systolic murmur Pulses: PRESENT: normal dorsalis pedis pul GI/Abdominal exam: PRESENT: normal bowel sounds, soft. ABSENT: tenderness Extremities exam: ABSENT: pedal edema Musculoskeletal exam: PRESENT: normal inspection Neurological exam: PRESENT: alert, other - He did not seem fully oriented. Possible confabulation. Unsure if everything he told me was true. He was not visualized ambulating. Psychiatric exam: PRESENT: other - as above. Skin exam: PRESENT: dry, warm Results Laboratory Results: 08/31/17 03:40 08/31/17 03:40 08/31/17 08/31/17 03:40 03:40 WBC 5.8 RBC 4.29 L Hgb 14.2 Hct 40.7 MCV 95 MCH 33.1 MCHC 34.9 RDW 14.2 H Plt Count 67 L Seg Neutrophils % 60.4 Lymphocytes % 30.9 Monocytes % 4.8 Eosinophils % 3.4 Basophils % 0.5 Absolute Neutrophils 3.5 Absolute Lymphocytes 1.8 Absolute Monocytes 0.3 Absolute Eosinophils 0.2 Absolute Basophils 0.0 Sodium 142.0 Potassium 3.3 L Chloride 109 H Carbon Dioxide 24 Anion Gap 9 BUN 10 Creatinine 1.11 Est GFR ( Amer) > 60 Est GFR (Non-Af Amer) > 60 Glucose 87 Calcium 8.0 L Magnesium 2.2 08/29/17 08/30/17 08/30/17 18:29 00:49 06:57 Creatine Kinase CK-MB (CK-2) Troponin I 0.020 0.020 0.016 08/31/17 08/31/17 03:40 03:40 Creatine Kinase 437 H CK-MB (CK-2) 2.60 Troponin I < 0.012 Impressions: Head CT 08/29/17 00:00 IMPRESSION: Old infarcts in the left hemisphere No acute intracranial changes EVIDENCE OF ACUTE STROKE: NO. Assessment & Plan - Diagnosis (1) Thrombocytopenia Is this a current diagnosis for this admission?: Yes Plan: Although this is acute, it is very similar to prior admission. I agree with holding all anticoagulation for now. Await HIT antibody, but I doubt this is HIT. I reviewed the perif. blood smear and there was no evidence of increased schistocytes. I did not feel an enlarged spleen. No evidence of active bleeding. Will follow CBC for now and watch for evidence of active bleeding. (2) Atrial fibrillation Qualifiers: Atrial fibrillation type: paroxysmal Qualified Code(s): I48.0 - Paroxysmal atrial fibrillation Is this a current diagnosis for this admission?: Yes Plan: I understand that long-term anticoagulation has been recommended. As long as his PLT count is >50 and there is no active bleeding, I am OK with anticoagulation with a non-heparin product. A newer agent such as Pradaxa or Eliquis would be acceptable, as long as his Cr is OK. However, I am concerned about his compliance with these products, especially with the history of alcohol. Risk/benefit would need to be examined closely and discussed with patient and family.
--- NOTE | 2017-08-31 15:46 | EKG REPORT ---
SEVERITY:- BORDERLINE ECG - SINUS RHYTHM LOW VOLTAGE THROUGHOUT : Confirmed by: Demetri Ayon 31-Aug-2017 15:46:12
[2017-08-31] MEDS ORDERED: LORAZEPAM 1 MG TABLET PO SCH (16:30)
[2017-08-31] MEDS ORDERED: LORAZEPAM INJ 2 MG/1 ML VIAL IV SCH (16:30)
[2017-08-31] MEDS: NORMAL SALINE 1000 ML 1,000 ML with POTASSIUM CHLORIDE 20 MEQ, MAGNESIUM SULFATE 8 MEQ,... IV SCH ×5 (18:12)
--- NOTE | 2017-08-31 19:35 | PDOC CONSULTATION ---
Consultation Consult Date: 08/31/17 Attending physician:: PATRICIA HOLLINS Consult reason:: Atrial fibrillation History of Present Illness Admission Date/PCP: 08/29/17 15:07 Patient complains of: Generalized weakness, near syncope History of Present Illness: Mr. Fam is a 72 year old gentleman who states that he has been told in the past that his blood counts were low, but they always come back to normal. He states that he has seen a glass unloading equipment tender in the past, but this was long ago. He states that he passed out and this is why he was admitted to the hospital. Currently, he feels "woozy". He has a severe headache and is back is hurting. According to medical records, he was admitted earlier this year with a PLT count of 160. The following day, his PLT count was 85 and 1 week later, it had risen to 119. He has also been treated in the past for SVT and long-term anticoagulation has been recommended. This history was reviewed and confirmed. Patient claims history of paroxysmal atrial fibrillation. He had a prior stroke involving the right side of the body. This was noted to be ischemic and several years ago. Patient has history of alcoholism and is currently noncompliant with medications. Patient claims that his granddaughter is surrogate decision-maker but I could not see any family members with the patient. Patient on questioning denied any chest pain. He looked comfortable and denied any shortness of breath. Past Medical History Cardiac Medical History: Reports: Atrial Fibrillation Neurological Medical History: Reports: Ischemic CVA, Seizures - as child Psychiatric Medical History: Reports: Alcohol Dependency, Depression Social History Information Source: Patient Smoking Status: Former Smoker Frequency of Alcohol Use: Heavy Hx Recreational Drug Use: Yes - Uncertain Drugs: Marijuana Hx Prescription Drug Abuse: No - Advance Directive Resuscitation Status: Full Code Surrogate healthcare decision maker:: Patient claims his granddaughter is the surrogate decision-maker Family History Family History: Reviewed & Not Pertinent Parental Family History Reviewed: Yes Children Family History Reviewed: Yes Sibling(s) Family History Reviewed.: Yes - Negative for premature coronary artery disease or sudden cardiac in the family amongst first degree relatives. Medication/Allergy Home Medications: Folic Acid 1 mg PO DAILY #90 tablet 08/30/17 Thiamine HCl [Thiamine 100 mg Tablet] 100 mg PO DAILY #90 tablet 08/30/17 Allergies/Adverse Reactions: No Known Allergies Allergy (Unverified 04/14/17 04:25) Review of Systems Review of Systems: Please see history of present illness and past medical history as wall. Constitutional: No fever or chills reported. Head : No recent chronic headaches, recent head injury. Eyes: No recent eye pain, diplopia, redness, discharge, acute visual changes. Ears: No recent chronic ear pain, acute hearing loss, ear discharge. Oral cavity: No recent ulcerations, bleeding, oral cavity discomfort. Neck: No recent acute neck pain reported. Hematologic: No recent easy bruising or bleeding or hematologic malignancy reported. Lymphatic: No recent lymphatic malignancy, chronic lymphadenopathy reported yet Cardiovascular system review: See history of present illness. Respiratory system review: No recent chronic cough, hemoptysis, blood clots in the lungs reported. Mild Shortness of breath on exertion. Intermittent dizziness Gastrointestinal system review: Negative for any recent acute or chronic abdominal pain, hematemesis, melena, recent change in bowel habits. Genitourinary system review: No recent acute or chronic hematuria, flank pain, UTI etc. reported. Skin system review: Negative for any recent abnormal bruising, no rash, no pruritus reported. Neurologic: History of prior stroke and possible seizures. Psychologic: No history of major psychosis or major depression reported. Musculoskeletal: Minor aches and pains reported. No acute joint swelling reported. Endocrine: No recent polyuria, polydipsia, recent heat or cold intolerance. Physical Exam Vital Signs: Temp Pulse Resp BP Pulse Ox 97.7 F 81 18 115/73 95 08/31/17 15:39 08/31/17 15:39 08/31/17 15:39 08/31/17 15:39 08/31/17 15:39 Intake & Output 08/30/17 08/31/17 09/01/17 06:59 06:59 06:59 Intake Total 2004 1307 550 Output Total 350 2950 Balance 1654 -1643 550 Weight 71.7 kg 73.2 kg Exam: GENERAL: well-nourished and in no acute distress. Alert and oriented x3 HEAD: Atraumatic, normocephalic. EYES: Pupils equal round and reactive to light, extraocular movements intact, sclera anicteric, conjunctiva are normal. ENT: TMs normal, nares patent, oropharynx clear without exudates. Moist mucous membranes. No oral ulcerations or bleeding gums noted NECK: supple without lymphadenopathy. Trachea is central. No cervical or axillary lymphadenopathy noted. Carotids are 2+, JVD WNL LUNGS: Respiration seems nonlabored, no significant accessory muscle action noted. Breath sounds clear to auscultation bilaterally and equal noted. No wheezes rales or rhonchi noted. No significant dullness noted on percussion. CHEST: Palpation of the chest wall shows no significant chest wall tenderness. No other significant abnormalities noted. 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 ABDOMEN: Soft, no significant tenderness appreciated, normoactive bowel sounds. No guarding, no rebound. No rigidity noted . No masses appreciated. EXTREMITIES: Pedal pulses are 1-2+, no calf tenderness noted. No clubbing or cyanosis.trace to 1+ pedal edema noted NEUROLOGICAL: Focused neurological exam showed right hemiparesis, speech noted to be normal. PSYCH: Normal mood, normal affect. Judgment and insight within normal limits. SKIN: No significant ecchymosis, rash, ulcerations or signs of pruritus noted. MUSCULOSKELETAL EXAM: No significant joint swelling noted. Results Laboratory Results: 08/31/17 03:40 08/31/17 03:40 08/31/17 08/31/17 03:40 03:40 WBC 5.8 RBC 4.29 L Hgb 14.2 Hct 40.7 MCV 95 MCH 33.1 MCHC 34.9 RDW 14.2 H Plt Count 67 L Seg Neutrophils % 60.4 Lymphocytes % 30.9 Monocytes % 4.8 Eosinophils % 3.4 Basophils % 0.5 Absolute Neutrophils 3.5 Absolute Lymphocytes 1.8 Absolute Monocytes 0.3 Absolute Eosinophils 0.2 Absolute Basophils 0.0 Sodium 142.0 Potassium 3.3 L Chloride 109 H Carbon Dioxide 24 Anion Gap 9 BUN 10 Creatinine 1.11 Est GFR ( Amer) > 60 Est GFR (Non-Af Amer) > 60 Glucose 87 Calcium 8.0 L Magnesium 2.2 08/29/17 08/30/17 08/30/17 18:29 00:49 06:57 Creatine Kinase CK-MB (CK-2) Troponin I 0.020 0.020 0.016 08/31/17 08/31/17 03:40 03:40 Creatine Kinase 437 H CK-MB (CK-2) 2.60 Troponin I < 0.012 EKG Comments: Low voltage QRS complex and nonspecific ST-T wave changes. Patient noted to be in sinus rhythm Impressions: Head CT 08/29/17 00:00 IMPRESSION: Old infarcts in the left hemisphere No acute intracranial changes EVIDENCE OF ACUTE STROKE: NO. Assessment & Plan - Diagnosis (1) Atrial fibrillation Qualifiers: Atrial fibrillation type: paroxysmal Qualified Code(s): I48.0 - Paroxysmal atrial fibrillation Is this a current diagnosis for this admission?: Yes (3) Alcohol withdrawal Qualifiers: Complication of substance-induced condition: with unspecified complication Qualified Code(s): F10.239 - Alcohol dependence with withdrawal, unspecified Is this a current diagnosis for this admission?: Yes (4) Alcohol intoxication Qualifiers: Complication of substance-induced condition: with unspecified complication Qualified Code(s): F10.929 - Alcohol use, unspecified with intoxication, unspecified (5) Thrombocytopenia Is this a current diagnosis for this admission?: Yes - Notes Notes: Atrial fibrillation, paroxysmal: Patient has paroxysmal atrial fibrillation. Based on [id number] score chronic anticoagulation is indicated this was explained to the patient. Patient is agreeable. Discussed a small increased risk of bleeding but on the balance benefits far exceeds the risk. Patient felt to be a satisfactory candidate for chronic anticoagulation. History of cerebrovascular accident: Patient noted to have right hemiparesis. Prevention of further stroke is important. Therefore chronic anticoagulation is indicated. Alcohol abuse with withdrawal and intoxication: Monitor patient for withdrawal symptoms. Beta-wen therapy would be helpful. Thrombocytopenia: Observe patient closely. May need to discontinue chronic anticoagulation if platelet count falls below 50. Avoid antiplatelet medication and nonsteroidals - Time Time Spent: 30 to 50 Minutes Medications reviewed and adjusted accordingly: Yes
[2017-08-31 20:41] LABS: CHOLESTEROL 129.17 mg/dL (0-200); Direct HDL 37 mg/dL (>40); TRIGLYCERIDES 144 mg/dL (<150)
[2017-08-31 20:52] LABS: DIRECT LDL 83 mg/dL (<100)
[2017-09-01] MEDS: LORAZEPAM 1 MG TABLET PO SCH ×3 (05:25→21:06)
[2017-09-01 07:47] LABS: ABSOLUTE EOSINOPHILS # (AUTO) 0.4 10^3/uL (0.0-0.6); ABSOLUTE LYMPHOCYTES (AUTO) 1.9 10^3/uL (0.5-4.7); ABSOLUTE MONOCYTES (AUTO) 0.2 10^3/uL (0.1-1.4); BASOPHILS % (AUTO) 0.8 % (0-2); HEMATOCRIT 40.4 % (37.9-51.0); HGB HCT DIFFERENCE 1.6; LYMPHOCYTES % (AUTO) 34.6 % (13-45); MEAN CORPUSCULAR HEMOGLOBIN 33.3 pg (27.0-33.4); MEAN CORPUSCULAR HGB CONC 34.6 g/dL (32.0-36.0); MEAN CORPUSCULAR VOLUME 96 fl (80-97); MONOCYTES % (AUTO) 3.8 % (3-13); RED CELL DISTRIBUTION WIDTH 14.2 % (11.5-14.0); SEGMENTED NEUTROPHILS % (AUTO) 53.8 % (42-78); WHITE BLOOD COUNT 5.6 10^3/uL (4.0-10.5)
[2017-09-01 08:02] LABS: ANION GAP 12 (5-19); BLOOD UREA NITROGEN 10 mg/dL (7-20); CALCIUM 8.2 mg/dL (8.4-10.2); CARBON DIOXIDE 26 mmol/L (22-30); CHLORIDE 106 mmol/L (98-107); GLUCOSE 94 mg/dL (75-110); POTASSIUM 3.4 mmol/L (3.6-5.0); SODIUM 143.5 mmol/L (137-145); TOTAL PROTEIN 5.3 g/dL (6.3-8.2)
[2017-09-01 08:04] LABS: ALANINE AMINOTRANSFERASE 30 U/L (21-72); ALKALINE PHOSPHATASE 54 U/L (38-126); ASPARTATE AMINO TRANSFERASE 27 U/L (17-59); BILIRUBIN,DIRECT 0.4 mg/dL (0.0-0.4); BILIRUBIN,TOTAL 0.7 mg/dL (0.2-1.3)
--- NOTE | 2017-09-01 08:17 | PDOC PROGRESS REPORT ---
Subjective Progress Note for:: 09/01/17 Subjective:: Patient without complaints today. No issues overnight. States that he has been eating well. Physical Exam Vital Signs: Temp Pulse Resp BP Pulse Ox 98.4 F 71 19 135/85 H 96 09/01/17 07:39 09/01/17 07:39 09/01/17 07:39 09/01/17 07:39 09/01/17 07:39 Intake & Output 08/31/17 09/01/17 09/02/17 06:59 06:59 06:59 Intake Total 1307 1850 Output Total 2950 450 Balance -1643 1400 Weight 73.2 kg 74.5 kg General appearance: PRESENT: no acute distress, well-developed Head exam: PRESENT: atraumatic, normocephalic Respiratory exam: PRESENT: clear to auscultation robbin Cardiovascular exam: PRESENT: RRR GI/Abdominal exam: PRESENT: normal bowel sounds, soft. ABSENT: tenderness Extremities exam: ABSENT: pedal edema Neurological exam: PRESENT: alert, awake Results Laboratory Results: 09/01/17 06:24 08/31/17 08/31/17 09/01/17 20:22 20:22 06:24 Sodium 143.5 Potassium 3.4 L Chloride 106 Carbon Dioxide 26 Anion Gap 12 BUN 10 Creatinine 1.00 Est GFR ( Amer) > 60 Est GFR (Non-Af Amer) > 60 Glucose 94 Calcium 8.2 L Magnesium 2.0 Total Bilirubin 0.7 AST 27 ALT 30 Alkaline Phosphatase 54 Total Protein 5.3 L Albumin 3.0 L Triglycerides 144 Cholesterol 129.17 LDL Cholesterol Direct 83 VLDL Cholesterol 29.0 HDL Cholesterol 37 L TSH 0.91 08/29/17 08/30/17 08/30/17 18:29 00:49 06:57 Creatine Kinase CK-MB (CK-2) Troponin I 0.020 0.020 0.016 08/31/17 08/31/17 03:40 03:40 Creatine Kinase 437 H CK-MB (CK-2) 2.60 Troponin I < 0.012 Impressions: Head CT 08/29/17 00:00 IMPRESSION: Old infarcts in the left hemisphere No acute intracranial changes EVIDENCE OF ACUTE STROKE: NO. Assessment & Plan - Diagnosis (1) Thrombocytopenia Is this a current diagnosis for this admission?: Yes Plan: Await today's CBC. HIT Ab still pending. Will follow. (2) Atrial fibrillation Qualifiers: Atrial fibrillation type: paroxysmal Qualified Code(s): I48.0 - Paroxysmal atrial fibrillation Is this a current diagnosis for this admission?: Yes Plan: I agree with anticoagulation, but would hold for PLT<50, or for evidence of active bleeding.
[2017-09-01] MEDS ORDERED: POTASSIUM CHLORIDE 10 MEQ TABLET.SA PO ONE (09:04)
--- NOTE | 2017-09-01 09:22 | EKG REPORT ---
SEVERITY:- BORDERLINE ECG - SINUS RHYTHM LOW VOLTAGE IN FRONTAL LEADS BORDERLINE PROLONGED QT INTERVAL : Confirmed by: Demetri Ayon 01-Sep-2017 09:21:35
[2017-09-01] MEDS: FAMOTIDINE 20 MG TABLET PO SCH ×2 (09:24→21:06)
[2017-09-01] MEDS: METOPROLOL SUCCINATE 50 MG TAB.SR.24H PO SCH ×2 (09:24→21:06)
[2017-09-01] MEDS: DOCUSATE SODIUM 100 MG CAPSULE PO SCH (09:24)
[2017-09-01] MEDS: FOLIC ACID 1 MG TABLET PO SCH (09:25)
--- NOTE | 2017-09-01 09:45 | PDOC PROGRESS REPORT ---
Subjective Progress Note for:: 09/01/17 Subjective:: Day 3 of hospitalization: Follow-up visit for alcohol withdrawal seizure in a patient with chronic alcohol abuse 72-year-old male with history of chronic alcohol abuse and alcohol withdrawal seizures, paroxysmal A. fib status post cardioversion in September 2016, who presented to the hospital after having his weakness seizure in the car on his way from the liquor store. He was admitted for alcohol withdrawal seizure and started on a tapering dose of oral lorazepam. On the night of 08/30/17, the patient transiently went into A. fib with RVR. Cardiology, Dr. Ayon: Recommends starting the patient on long-term anticoagulation when appropriate. Hematology, Dr. Mckee reviewed the patient's peripheral blood smear and did not find any evidence of TTP including schistocytes. Current thrombocytopenia is similar to previous episodes of thrombocytopenia during prior admissions. Recommended holding heparin products and observing at this time. Overnight events noted: Patient has remained in normal sinus rhythm with episodes of sinus tachycardia. This morning, patient patient was reportedly somewhat confused. He continued to have some tremulousness, and generalized weakness. No further seizures noted since admission. Denies chest pain shortness of breath, nausea, vomiting, diarrhea, any focal neurologic deficit. Admits to having some headache. Has remained afebrile since admission Physical Exam Vital Signs: Temp Pulse Resp BP Pulse Ox 98.4 F 71 19 135/85 H 96 09/01/17 07:39 09/01/17 07:39 09/01/17 07:39 09/01/17 07:39 09/01/17 07:39 Intake & Output 08/31/17 09/01/17 09/02/17 06:59 06:59 06:59 Intake Total 1307 1850 Output Total 2950 450 Balance -1643 1400 Weight 73.2 kg 74.5 kg General appearance: PRESENT: no acute distress, disheveled, well-developed Eye exam: PRESENT: conjunctiva pink, EOMI, PERRLA Respiratory exam: PRESENT: decreased breath sounds, rhonchi, symmetrical Cardiovascular exam: PRESENT: RRR, +S1, +S2, tachycardia GI/Abdominal exam: PRESENT: normal bowel sounds, soft. ABSENT: ascites, diminished bowel sounds, distended, firm, guarding, hernia, hyperactive bowel sounds, hypoactive bowel sounds, mass, Majano's sign, organolmegaly, rebound, rigid, tenderness, other Neurological exam: PRESENT: awake, oriented to person, oriented to place, oriented to time, oriented to situation, reflexes normal, CN II-XII grossly intact, other - Drowsy, fine tremors noted with upper extremity outstretched Psychiatric exam: PRESENT: anxious Results Laboratory Results: 09/01/17 06:24 09/01/17 06:24 08/31/17 08/31/17 09/01/17 20:22 20:22 06:24 WBC 5.6 RBC 4.20 L Hgb 14.0 Hct 40.4 MCV 96 MCH 33.3 MCHC 34.6 RDW 14.2 H Plt Count 73 L Seg Neutrophils % 53.8 Lymphocytes % 34.6 Monocytes % 3.8 Eosinophils % 7.0 H Basophils % 0.8 Absolute Neutrophils 3.0 Absolute Lymphocytes 1.9 Absolute Monocytes 0.2 Absolute Eosinophils 0.4 Absolute Basophils 0.0 Sodium Potassium Chloride Carbon Dioxide Anion Gap BUN Creatinine Est GFR ( Amer) Est GFR (Non-Af Amer) Glucose Calcium Magnesium Total Bilirubin AST ALT Alkaline Phosphatase Total Protein Albumin Triglycerides 144 Cholesterol 129.17 LDL Cholesterol Direct 83 VLDL Cholesterol 29.0 HDL Cholesterol 37 L TSH 0.91 09/01/17 06:24 WBC RBC Hgb Hct MCV MCH MCHC RDW Plt Count Seg Neutrophils % Lymphocytes % Monocytes % Eosinophils % Basophils % Absolute Neutrophils Absolute Lymphocytes Absolute Monocytes Absolute Eosinophils Absolute Basophils Sodium 143.5 Potassium 3.4 L Chloride 106 Carbon Dioxide 26 Anion Gap 12 BUN 10 Creatinine 1.00 Est GFR ( Amer) > 60 Est GFR (Non-Af Amer) > 60 Glucose 94 Calcium 8.2 L Magnesium 2.0 Total Bilirubin 0.7 AST 27 ALT 30 Alkaline Phosphatase 54 Total Protein 5.3 L Albumin 3.0 L Triglycerides Cholesterol LDL Cholesterol Direct VLDL Cholesterol HDL Cholesterol TSH 08/29/17 08/30/17 08/30/17 18:29 00:49 06:57 Creatine Kinase CK-MB (CK-2) Troponin I 0.020 0.020 0.016 08/31/17 08/31/17 03:40 03:40 Creatine Kinase 437 H CK-MB (CK-2) 2.60 Troponin I < 0.012 Impressions: Head CT 08/29/17 00:00 IMPRESSION: Old infarcts in the left hemisphere No acute intracranial changes EVIDENCE OF ACUTE STROKE: NO. Assessment & Plan - Diagnosis (1) Alcohol withdrawal Qualifiers: Complication of substance-induced condition: with unspecified complication Qualified Code(s): F10.239 - Alcohol dependence with withdrawal, unspecified Is this a current diagnosis for this admission?: Yes Plan: Admits to drinking 8 shots of whiskey daily. Last drink was the night of . He continues to have evidence of active alcohol withdrawal. Continue alcohol withdrawal protocol with tapering Ativan dosing. Continue thiamine, magnesium and folic acid. Further alcohol abuse strongly discouraged (2) Seizure Is this a current diagnosis for this admission?: Yes Plan: Due to alcohol withdrawal. No further seizures since admission. Head CT scan with no acute abnormality. Continue Ativan prn as ordered. Maintain seizure precautions (3) Atrial fibrillation status post cardioversion Is this a current diagnosis for this admission?: Yes Plan: Paroxysmal atrial fibrillation status post cardioversion in 09/2016. Patient will transiently in A. fib with RVR overnight. Currently normal sinus rhythm. [id number] VASc score 4 (HTN, AGE, past CVA). High risk of bleeding given continued alcohol abuse and withdrawal seizures. Cardiology, Dr. Ayon, recommended beginning anticoagulation when appropriate (4) Thrombocytopenia Is this a current diagnosis for this admission?: Yes Plan: Platelets 73 [62][148]. Heparin products discontinued. Antiplatelets antibodies pending. Hematology, Dr. Mckee, reviewed the peripheral blood smear and did not find any schistocytes. Expect platelet count to improve. We will follow (5) ALEXANDER (acute kidney injury) Is this a current diagnosis for this admission?: Yes Plan: ALEXANDER, non-oliguric on likely CKD III. Improved with IV fluids. 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 (8) DVT prophylaxis Is this a current diagnosis for this admission?: Yes Plan: Subcutaneous Lovenox discontinued due to thrombocytopenia. Maintained on SCDs - Time Time Spent with patient: 35 or more minutes Medications reviewed and adjusted accordingly: Yes Anticipated discharge: Home - Inpatient Certification Medical Necessity: Need for Neurological Checks - Plan to discharge home when clinically stable, and when okay with all consultants, Risk of Complication if Not Cared For in Hospital
[2017-09-01] MEDS ORDERED: LORAZEPAM INJ 2 MG/1 ML VIAL IV SCH (10:30)
[2017-09-01] MEDS: OXYCODONE HCL IR 5 MG TABLET PO PRN (13:30)
--- NOTE | 2017-09-01 15:49 | PDOC PROGRESS REPORT ---
Subjective Progress Note for:: 09/01/17 Subjective:: Patient seems to be doing better with gradual improvement. Pt is denying any chest arm or neck discomfort. Patient denying any PND, orthopnea. Patient denied any sustained palpitations, dizziness, syncope, near syncope. Patient denying any fever chills. Patient denying any other significant discomfort. Patient is maintaining sinus rhythm. Review of systems: Rest review of systems negative. Medications: Medications have been reviewed. Physical Exam Vital Signs: Temp Pulse Resp BP Pulse Ox 99.0 F 83 20 106/83 95 09/01/17 11:47 09/01/17 14:00 09/01/17 11:47 09/01/17 11:47 09/01/17 11:47 Intake & Output 08/31/17 09/01/17 09/02/17 06:59 06:59 06:59 Intake Total 1307 1850 318 Output Total 2950 450 250 Balance -1643 1400 68 Weight 73.2 kg 74.5 kg Exam: GENERAL: well-nourished and in no acute distress. Alert and oriented x3 HEAD: Atraumatic, normocephalic. EYES: Pupils equal round and reactive to light, extraocular movements intact, sclera anicteric, conjunctiva are normal. ENT: TMs normal, nares patent, oropharynx clear without exudates. Moist mucous membranes. No oral ulcerations or bleeding gums noted NECK: supple without lymphadenopathy. Trachea is central. No cervical or axillary lymphadenopathy noted. Carotids are 2+, JVD WNL LUNGS: Respiration seems nonlabored, no significant accessory muscle action noted. Breath sounds clear to auscultation bilaterally and equal noted. No wheezes rales or rhonchi noted. No significant dullness noted on percussion. CHEST: Palpation of the chest wall shows no significant chest wall tenderness. No other significant abnormalities noted. 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 ABDOMEN: Soft, no significant tenderness appreciated, normoactive bowel sounds. No guarding, no rebound. No rigidity noted . No masses appreciated. EXTREMITIES: Pedal pulses are 1-2+, no calf tenderness noted. No clubbing or cyanosis.trace to 1+ pedal edema noted NEUROLOGICAL: Focused neurological exam showed residual right hemiparesis findings. His speech is well preserved. PSYCH: Normal mood, normal affect. Judgment and insight within normal limits. SKIN: No significant ecchymosis, rash, ulcerations or signs of pruritus noted. MUSCULOSKELETAL EXAM: No significant joint swelling noted. Results Laboratory Results: 09/01/17 06:24 09/01/17 06:24 08/31/17 08/31/17 09/01/17 20:22 20:22 06:24 WBC 5.6 RBC 4.20 L Hgb 14.0 Hct 40.4 MCV 96 MCH 33.3 MCHC 34.6 RDW 14.2 H Plt Count 73 L Seg Neutrophils % 53.8 Lymphocytes % 34.6 Monocytes % 3.8 Eosinophils % 7.0 H Basophils % 0.8 Absolute Neutrophils 3.0 Absolute Lymphocytes 1.9 Absolute Monocytes 0.2 Absolute Eosinophils 0.4 Absolute Basophils 0.0 Sodium Potassium Chloride Carbon Dioxide Anion Gap BUN Creatinine Est GFR ( Amer) Est GFR (Non-Af Amer) Glucose Calcium Magnesium Total Bilirubin AST ALT Alkaline Phosphatase Total Protein Albumin Triglycerides 144 Cholesterol 129.17 LDL Cholesterol Direct 83 VLDL Cholesterol 29.0 HDL Cholesterol 37 L TSH 0.91 09/01/17 06:24 WBC RBC Hgb Hct MCV MCH MCHC RDW Plt Count Seg Neutrophils % Lymphocytes % Monocytes % Eosinophils % Basophils % Absolute Neutrophils Absolute Lymphocytes Absolute Monocytes Absolute Eosinophils Absolute Basophils Sodium 143.5 Potassium 3.4 L Chloride 106 Carbon Dioxide 26 Anion Gap 12 BUN 10 Creatinine 1.00 Est GFR ( Amer) > 60 Est GFR (Non-Af Amer) > 60 Glucose 94 Calcium 8.2 L Magnesium 2.0 Total Bilirubin 0.7 AST 27 ALT 30 Alkaline Phosphatase 54 Total Protein 5.3 L Albumin 3.0 L Triglycerides Cholesterol LDL Cholesterol Direct VLDL Cholesterol HDL Cholesterol TSH 08/29/17 08/30/17 08/30/17 18:29 00:49 06:57 Creatine Kinase CK-MB (CK-2) Troponin I 0.020 0.020 0.016 08/31/17 08/31/17 03:40 03:40 Creatine Kinase 437 H CK-MB (CK-2) 2.60 Troponin I < 0.012 EKG Comments: Telemetry strips shows sinus rhythm. No sustained tachycardia or bradycardia arrhythmias noted. Impressions: Head CT 08/29/17 00:00 IMPRESSION: Old infarcts in the left hemisphere No acute intracranial changes EVIDENCE OF ACUTE STROKE: NO. Assessment & Plan - Diagnosis (1) Atrial fibrillation Qualifiers: Atrial fibrillation type: paroxysmal Qualified Code(s): I48.0 - Paroxysmal atrial fibrillation Is this a current diagnosis for this admission?: Yes (2) History of CVA (cerebrovascular accident) Is this a current diagnosis for this admission?: Yes (3) Alcohol withdrawal Qualifiers: Complication of substance-induced condition: with unspecified complication Qualified Code(s): F10.239 - Alcohol dependence with withdrawal, unspecified Is this a current diagnosis for this admission?: Yes (4) Alcohol intoxication Qualifiers: Complication of substance-induced condition: with unspecified complication Qualified Code(s): F10.929 - Alcohol use, unspecified with intoxication, unspecified Is this a current diagnosis for this admission?: Yes (5) Thrombocytopenia Is this a current diagnosis for this admission?: Yes - Notes Notes: History of paroxysmal atrial fibrillation: Patient has prior history of stroke therefore would be a good candidate for chronic anticoagulation. Patient currently has low platelet count but is stabilizing. History of CVA: Currently stable. M would be to prevent future CVA. Alcohol withdrawal: Patient seems improving. Thrombocytopenia: Platelet counts are stabilizing. - Time Time with patient: 15-25 minutes - CODE STATUS was discussed, patient remains full code. Surrogate decision-maker patient's granddaughter. Multiple medical problems were addressed. More than 50% of the time spent coordinating care, discussing management plans with involved caregivers. Management plans discussed with involved personnels. Medical decision making was of moderate to high complexity, patient's has multiple comorbidities. Medications reviewed and adjusted accordingly: Yes
[2017-09-01] MEDS: NORMAL SALINE 1000 ML 1,000 ML with POTASSIUM CHLORIDE 20 MEQ, MAGNESIUM SULFATE 8 MEQ,... IV SCH ×5 (17:57)
[2017-09-01] MEDS: ZOLPIDEM TARTRATE 5 MG TABLET PO SCH (21:05)
[2017-09-02 05:53] LABS: HEMATOCRIT 41.4 % (37.9-51.0); HEMOGLOBIN 14.2 g/dL (13.5-17.0); HGB HCT DIFFERENCE 1.2; MEAN CORPUSCULAR HEMOGLOBIN 32.9 pg (27.0-33.4); MEAN CORPUSCULAR HGB CONC 34.3 g/dL (32.0-36.0); MEAN CORPUSCULAR VOLUME 96 fl (80-97); RED BLOOD COUNT 4.32 10^6/uL (4.35-5.55); RED CELL DISTRIBUTION WIDTH 13.8 % (11.5-14.0); WHITE BLOOD COUNT 5.6 10^3/uL (4.0-10.5)
[2017-09-02] MEDS: LORAZEPAM 1 MG TABLET PO SCH (05:54)
--- NOTE | 2017-09-02 08:13 | PDOC PROGRESS REPORT ---
Subjective Progress Note for:: 09/02/17 Subjective:: Patient states that he is feeling much better. No new complaints today. Physical Exam Vital Signs: Temp Pulse Resp BP Pulse Ox 98.0 F 68 19 127/93 H 96 09/02/17 07:50 09/02/17 07:50 09/02/17 07:50 09/02/17 07:50 09/02/17 07:50 Intake & Output 09/01/17 09/02/17 09/03/17 06:59 06:59 06:59 Intake Total 1850 1828 Output Total 450 1050 Balance 1400 778 Weight 74.5 kg 73.4 kg General appearance: PRESENT: no acute distress, cooperative, well-developed Head exam: PRESENT: atraumatic, normocephalic Neurological exam: PRESENT: alert, awake Psychiatric exam: PRESENT: other - Normal speech. Normal affect. Results Laboratory Results: 09/02/17 04:59 09/01/17 06:24 09/01/17 09/01/17 09/02/17 06:24 06:24 04:59 WBC 5.6 5.6 RBC 4.20 L 4.32 L Hgb 14.0 14.2 Hct 40.4 41.4 MCV 96 96 MCH 33.3 32.9 MCHC 34.6 34.3 RDW 14.2 H 13.8 Plt Count 73 L 74 L Seg Neutrophils % 53.8 Lymphocytes % 34.6 Monocytes % 3.8 Eosinophils % 7.0 H Basophils % 0.8 Absolute Neutrophils 3.0 Absolute Lymphocytes 1.9 Absolute Monocytes 0.2 Absolute Eosinophils 0.4 Absolute Basophils 0.0 Sodium 143.5 Potassium 3.4 L Chloride 106 Carbon Dioxide 26 Anion Gap 12 BUN 10 Creatinine 1.00 Est GFR ( Amer) > 60 Est GFR (Non-Af Amer) > 60 Glucose 94 Calcium 8.2 L Magnesium 2.0 Total Bilirubin 0.7 AST 27 ALT 30 Alkaline Phosphatase 54 Total Protein 5.3 L Albumin 3.0 L 08/29/17 08/30/17 08/30/17 18:29 00:49 06:57 Creatine Kinase CK-MB (CK-2) Troponin I 0.020 0.020 0.016 08/31/17 08/31/17 03:40 03:40 Creatine Kinase 437 H CK-MB (CK-2) 2.60 Troponin I < 0.012 Impressions: Head CT 08/29/17 00:00 IMPRESSION: Old infarcts in the left hemisphere No acute intracranial changes EVIDENCE OF ACUTE STROKE: NO. Assessment & Plan - Diagnosis (1) Thrombocytopenia Is this a current diagnosis for this admission?: Yes Plan: Appears to be improving. HIT Ab was negative. Continue current treatment. (2) Atrial fibrillation Qualifiers: Atrial fibrillation type: paroxysmal Qualified Code(s): I48.0 - Paroxysmal atrial fibrillation Is this a current diagnosis for this admission?: Yes Plan: Agree with anticoagulation as long as PLT>50. - Plan Summary Plan Summary: No further testing recommended at present. When patient is discharged, would be happy to follow as outpatient and repeat CBC in 1-2 weeks, if needed. I will sign off. Please call me if needed. Thanks!
[2017-09-02] MEDS: FAMOTIDINE 20 MG TABLET PO SCH (09:06)
[2017-09-02] MEDS: METOPROLOL SUCCINATE 50 MG TAB.SR.24H PO SCH (09:07)
[2017-09-02] MEDS: FOLIC ACID 1 MG TABLET PO SCH (09:07)
[2017-09-02] MEDS: DOCUSATE SODIUM 100 MG CAPSULE PO SCH (09:07)
[2017-09-02] MEDS ORDERED: LORAZEPAM INJ 2 MG/1 ML VIAL IV SCH (10:30)
[2017-09-02] MEDS ORDERED: LORAZEPAM 1 MG TABLET PO SCH ×3 (10:30→17:30)
[2017-09-02] MEDS ORDERED: ACETAMINOPHEN 325 MG TABLET PO PRN (10:52)
--- NOTE | 2017-09-02 11:25 | PDOC DISCHARGE SUMMARY ---
General - Admit/Disc Date/PCP Admission Date/Primary Care Provider: 08/29/17 15:07 Discharge Date: 09/02/17 - Consultants:Oncology-Dr. Mckee; cardiology-Dr. Ayon - Discharge Diagnosis (1) Alcohol withdrawal Is this a current diagnosis for this admission?: Yes Summary: Patient admits to drinking 8 shots of whiskey daily. Last drink was on the night of 08/28/2017. His alcohol withdrawal symptoms have improved significantly with tapering Ativan dosing. Will discharge home on thiamine and folic acid. For the alcohol abuse strongly discouraged. (2) Seizure Is this a current diagnosis for this admission?: Yes Summary: Alcohol withdrawal seizure. No further seizures noted since admission. Head CT scan with no acute abnormality. Patient to follow-up with his primary care physician (3) Atrial fibrillation status post cardioversion Is this a current diagnosis for this admission?: Yes Summary: Paroxysmal atrial fibrillation status post cardioversion in 09/2016. Patient was noted to be transiently in A. fib with RVR on the night of 08/31/2017. Currently normal sinus rhythm. [id number] VASc 4 [hypertension, age, past CVA]. Patient seen by Dr. Ayon who recommended beginning anticoagulation preferably with a NOACs such as apixaban. However patient has very high risk of bleeding given the continued alcohol abuse, alcohol withdrawal seizures, and current low platelets. Patient states that he will follow-up with his primary care physician as well as with Dr. Ayon upon discharge, and at that time would decide as to if to use long-term anticoagulation (4) Thrombocytopenia Is this a current diagnosis for this admission?: Yes Summary: Thrombocytopenia most likely due to acute illness in the setting of alcohol abuse. Platelets 74 [62][148]. Platelet antibodies negative. No schistocytes on peripheral smear. Patient seen by hematology: Recommend outpatient follow- up in 1-2 weeks with outpatient CBC (5) ALEXANDER (acute kidney injury) Is this a current diagnosis for this admission?: Yes Summary: HPI, nonoliguric unlikely CKD stage III. Significantly improved with IV fluids. 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 He has history of alcohol withdrawal seizure back in the 1970s. He states he quit drinking for about 5 years and he started drinking 1 year ago. He admits to drinking about 8 shots every day. His last drink was last evening. The patient was on his way back home from the liquid stool when he started having a generalized tonic- clonic seizure that was witnessed by the granddaughter. He was brought to the emergency room and has not had any further seizures. He complains of mild frontal headache, denies any focal neurologic deficit, denies any chest pain, shortness of breath, nausea, vomiting, or diarrhea. He has not had any fever or chills. He states that he has been doing relatively well until this incident. In the emergency room, head CT scan showed evidence of an old stroke, he has been started on IV fluids and has received if his dose of IV Ativan. He complains of increase tremulousness. Physical Exam Vital Signs: Temp Pulse Resp BP Pulse Ox 98.0 F 68 19 127/93 H 96 09/02/17 07:50 09/02/17 07:50 09/02/17 07:50 09/02/17 07:50 09/02/17 07:50 Intake & Output 09/01/17 09/02/17 09/03/17 06:59 06:59 06:59 Intake Total 1850 1828 Output Total 450 1050 Balance 1400 778 Weight 74.5 kg 73.4 kg General appearance: PRESENT: no acute distress, cooperative, disheveled, well- developed Head exam: PRESENT: atraumatic, normocephalic Respiratory exam: PRESENT: decreased breath sounds, rhonchi, symmetrical, unlabored Cardiovascular exam: PRESENT: RRR, +S1, +S2. ABSENT: bradycardia, clicks, diastolic murmur, gallop, irregular rhythm, rubs, systolic murmur, tachycardia, other GI/Abdominal exam: PRESENT: normal bowel sounds, soft. ABSENT: ascites, diminished bowel sounds, distended, firm, guarding, hernia, hyperactive bowel sounds, hypoactive bowel sounds, mass, Majano's sign, organolmegaly, rebound, rigid, tenderness, other Neurological exam: PRESENT: awake, oriented to person, oriented to place, oriented to time, oriented to situation, reflexes normal, CN II-XII grossly intact Psychiatric exam: PRESENT: depressed Results Laboratory Results: 09/02/17 04:59 09/01/17 06:24 09/02/17 04:59 WBC 5.6 RBC 4.32 L Hgb 14.2 Hct 41.4 MCV 96 MCH 32.9 MCHC 34.3 RDW 13.8 Plt Count 74 L 08/29/17 08/30/17 08/30/17 18:29 00:49 06:57 Creatine Kinase CK-MB (CK-2) Troponin I 0.020 0.020 0.016 08/31/17 08/31/17 03:40 03:40 Creatine Kinase 437 H CK-MB (CK-2) 2.60 Troponin I < 0.012 Impressions: Head CT 08/29/17 00:00 IMPRESSION: Old infarcts in the left hemisphere No acute intracranial changes EVIDENCE OF ACUTE STROKE: NO. Status: Image reviewed by me Qualifiers PATEINT BEING DISCHARGED WITH ANY OF THE FOLLOWING DIAGNOSIS?: No Plan Time Spent: Greater than 30 Minutes - Discharge diagnosis as well as the plan of care was carefully reviewed with the patient. He has expressed explicit understanding of this plan of care. He informs me that he will do an outpatient CBC and then follow-up with his primary care physician, as well as oncology and cardiology. At that time he will decide if he wants to be on long- term anticoagulation
[2017-09-02] MEDS ORDERED: ONDANSETRON HCL INJ/PF 4 MG/2 ML SDV IV PRN (11:30)
[2017-09-02 16:01] VITALS: BP 144/92
--- NOTE | 2017-09-03 13:58 | XCELERA REPORT ---
[address] [address] Transthoracic Echocardiogram Report Name: HAZEL SOFIA Age: 72 yrs Gender: Male : 1945 Patient Status: Inpatient Patient Location: [address] [place] [address] Study Date: 09/02/2017 10:25 AM Height: 69 in Weight: 161 lb BSA: 1.9 m2 Procedure: A complete two-dimensional transthoracic echocardiogram was performed (2D, M-mode, spectral and color flow Doppler). The study was technically difficult with many images being suboptimal in quality. Reason For Study: , CHF Ordering Physician: DEMETRI NELSON Performed By: Latha Palafox Interpretation Summary The left ventricular ejection fraction is normal. There is borderline concentric left ventricular hypertrophy. The left ventricle is grossly normal size. Doppler measurements suggest pseudonormalized left ventricular relaxation, which is associated with grade II/IV or mild to moderate diastolic dysfunction Wall motion cannot be accurately commented on, but no definite regional wall motion abnormalities noted. The right ventricular systolic function is normal. The left atrial size is normal. The right atrium is normal in size There is a trace amount of mitral regurgitation There is no mitral valve stenosis. No aortic regurgitation is present. There is no aortic valve stenosis There is a trace or physiologic amount of tricuspid regurgitation Tricuspid regurgitation jet envelope not well defined to measure RV systolic pressure accurately. The aortic root is not well visualized. The inferior vena cava appeared normal and decreased > 50% with respiration (RAP 5-10 mmHg) Minimal pericardial effusion. MMode/2D Measurements & Calculations RVDd: 2.4 cm LVIDd: 4.4 cm FS: 34.8 % Ao root diam: 3.8 cm IVSd: 0.88 cm LVIDs: 2.9 cm EDV(Teich): 87.5 ml LVPWd: 0.97 cmESV(Teich): 31.3 mlAo root area: 11.4 cm2 EF(Teich): 64.2 % LA dimension: 2.7 cm LVOT diam: 2.2 cm LVOT area: 3.9 cm2 Doppler Measurements & Calculations MV E max akash: MV P1/2t max akash: Ao V2 max: LV V1 max P.9 cm/sec 35.5 cm/sec 94.7 cm/sec 2.3 mmHg MV A max akash: MV P1/2t: 92.6 msec Ao max PG: LV V1 max: 68.8 cm/sec MVA(P1/2t): 2.4 cm2 3.6 mmHg 75.3 cm/sec MV E/A: 0.51 MV dec slope: ADAM(V,D): 3.1 cm2 112.2 cm/sec2 PA V2 max: 62.9 cm/sec PA max P.6 mmHg Left Ventricle The left ventricle is grossly normal size. There is borderline concentric left ventricular hypertrophy. The left ventricular ejection fraction is normal. Doppler measurements suggest pseudonormalized left ventricular relaxation, which is associated with grade II/IV or mild to moderate diastolic dysfunction. Wall motion cannot be accurately commented on, but no definite regional wall motion abnormalities noted. Right Ventricle The right ventricle is grossly normal size. There is normal right ventricular wall thickness. The right ventricular systolic function is normal. Atria The right atrium is normal in size. The left atrial size is normal. Interarterial septum not well visualized and not well dopplered. Cannot comment on ASD/PFO presence. Mitral Valve The mitral valve is grossly normal. There is no mitral valve stenosis. There is a trace amount of mitral regurgitation. Aortic Valve The aortic valve is grossly normal. There is no aortic valve stenosis. No aortic regurgitation is present. Tricuspid Valve The tricuspid valve is not well visualized, but is grossly normal. There is no tricuspid stenosis. There is a trace or physiologic amount of tricuspid regurgitation. Tricuspid regurgitation jet envelope not well defined to measure RV systolic pressure accurately. Pulmonic Valve The pulmonic valve is not well visualized. Great Vessels The aortic root is not well visualized. The inferior vena cava appeared normal and decreased > 50% with respiration (RAP 5-10 mmHg). Effusions Minimal pericardial effusion. : DEMETRI NELSON > Demetri Nelson
== END 2017-09-02 16:15 | disposition home or self-care (01) | DRG 897 ==
LOC: ER 12:20 → EH 15:07 → 3W 19:02
PROVIDERS: ADMIT Emergency Medicine; ATTEND Emergency Medicine
DX: F10.239 Alcohol dependence with withdrawal, unspecified (principal); N17.9 Acute kidney failure, unspecified; Y90.0 Blood alcohol level of less than 20 mg/100 ml; R56.9 Unspecified convulsions; D69.59 Other secondary thrombocytopenia; I11.0 Hypertensive heart disease with heart failure; N18.3 Chronic kidney disease, stage 3 (moderate); E87.6 Hypokalemia; H57.02 Anisocoria; F43.10 Post-traumatic stress disorder, unspecified; I48.0 Paroxysmal atrial fibrillation; F10.229 Alcohol dependence with intoxication, unspecified; Z86.73 Personal history of transient ischemic attack (TIA), and cerebral infarction without residual deficits; Z87.891 Personal history of nicotine dependence
CPT/HCPCS: 36415; 70450; 80048; 80053; 80061; 80307; 82550; 82553; 83036; 83735; 84443; 84484; 85025; 85027; 86022; 93005; 93010; 93306; 96374; 99285; J2060; J3411; J3475; J3480; J3490; J7030